=== PATIENT | female | born 1955 | race Caucasian/White ===

== ENCOUNTER 2019-12-18 19:46 | Inpatient (IN) ==
[2019-12-18] MEDS ORDERED: SODIUM CHLORIDE 0.9% 1000ML 1,000 ML IV SCH (20:15)
--- NOTE | 2019-12-18 20:30 | XRay Report ---
XR chest 1V portable CLINICAL HISTORY: weakness COMPARISON STUDY: Chest CT September 02, 2010. FINDINGS: Lung volumes are normal. There is no pneumothorax or pleural effusion. There is mild to mod erate cardiomegaly without evidence for pulmonary edema. There is minimal right basilar opacity. IMPRESSION: 1. Minimal right basilar opacity. Atelectasis is favored although a mild infectious process could alejandro ear similar. 2. Cardiomegaly without evidence for pulmonary edema. ACT 112: Negative or not required by law. Electronically signed by: Messi Cohen M.D. 12/18/2019 8:29 PM
--- NOTE | 2019-12-18 20:48 | CT Scan Report ---
CT OF THE HEAD WITHOUT CONTRAST CLINICAL HISTORY: Weakness. Fall. COMPARISON STUDY: No previous studies for comparison. CT DOSE: 614.27 mGy.cm TECHNIQUE: Helical axial images of the head were obtained without IV contrast. Automated exposure con trol was utilized for the study. A dose lowering technique was utilized adhering to the principles o f ALARA. FINDINGS: No acute intracranial hemorrhage, midline shift or mass effect is present. Ventricular syst em is unremarkable. A small to moderate size focus of encephalomalacia within the right frontal lobe with volume loss is chronic. There are no extra axial collections. There are no findings to suggest a cute dural sinus thrombosis or acute territorial infarct. There is no calvarial fracture. There is mi ld frontal sinus polypoid mucosal thickening. IMPRESSION: 1. No acute intracranial findings. 2. 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 3. No calvarial fracture. ACT 112: Negative or not required by law. Electronically signed by: Messi Cohen M.D. 12/18/2019 8:46 PM
[2019-12-18 20:55] LABS: Hematocrit (blood only) 33.8 % (37-47); Hemoglobin 11.3 g/dL (12.0-16.0); Mean Corpuscular Hemoglobin 27.9 pg (25-34); Mean Corpuscular Hgb Conc 33.4 g/dL (32-36); Mean Corpuscular Volume 83.5 fL (80-100); Mean Platelet Volume 8.1 fL (7.4-10.4); Platelet Count 209 K/uL (130-400); RDW Coefficient of Variation 13.8 % (11.5-14.5); RDW Standard Deviation 42.2 fL (36.4-46.3); Red Blood Count 4.05 M/uL (4.2-5.4); White Blood Count 17.16 K/uL (4.8-10.8)
[2019-12-18 21:05] LABS: INR 2.5 (0.9-1.1); Prothrombin Time 23.7 Seconds (9.0-12.0)
[2019-12-18 21:17] LABS: Alanine Aminotransferase 14 U/L (12-78); Albumin Level 2.9 gm/dl (3.4-5.0); Aspartate Aminotransferase 14 U/L (15-37); BUN Creatinine Ratio 11.6 (10-20); Blood Urea Nitrogen 7 mg/dl (7-18); Calcium 8.9 mg/dl (8.5-10.1); Carbon Dioxide 30 mmol/L (21-32); Chloride 89 mmol/L (98-107); Est GFR (African American) 109.3; Est GFR (Non-African American) 94.3; Glucose 113 mg/dl (70-99); Magnesium 1.6 mg/dl (1.8-2.4); Potassium 2.5 mmol/L (3.5-5.1); Sodium 127 mmol/L (136-145)
[2019-12-18 21:24] LABS: Albumin Globulin Ratio 0.6 (0.9-2); Alkaline Phosphatase 82 U/L (45-117); Bilirubin,Total 0.4 mg/dl (0.2-1); Creatine Kinase 41 U/L (26-192); Globulin 4.6 gm/dl (2.5-4.0); Total Protein 7.5 gm/dl (6.4-8.2); Troponin I < 0.015 ng/ml (0-0.045)
[2019-12-18 21:26] LABS: Basophils # (auto) 0.01 K/uL (0-0.2); Basophils % (auto) 0.1 %; Eosinophils # (auto) 0.01 K/uL (0-0.5); Eosinophils % (auto) 0.1 %; Immature Granulocytes # (auto) 0.04 K/uL (0.00-0.02); Immature Granulocytes % (auto) 0.2 %; Lymphocytes # (auto) 0.88 K/uL (1.2-3.4); Lymphocytes % (auto) 5.1 %; Monocytes # (auto) 0.98 K/uL (0.11-0.59); Monocytes % (auto) 5.7 %; Neutrophils # (auto) 15.24 K/uL (1.4-6.5); Neutrophils % (auto) 88.8 %
[2019-12-18] MEDS ORDERED: PIPERACILL/TAZOBAC CONSULT ACTIVE PRN ×2 (21:28→23:45)
[2019-12-18] MEDS ORDERED: POTASSIUM CHLORIDE 10 MEQ TABCR PO STA (21:28)
[2019-12-18] MEDS ORDERED: PIPERACILLIN/TAZOBACTAM 4.5 GM/120 ML BAG IV ONE (21:28)
[2019-12-18] MEDS ORDERED: ALBUTEROL 0.083% NEBU SOLN 3 ML VIAL NEB STA (21:29)
[2019-12-18] MEDS: POTASSIUM CHLORIDE / WTR 10 MEQ/100 ML PLCT IV SCH ×2 (22:06→23:05)
--- NOTE | 2019-12-18 22:45 | History & Physical Report ---
Date of Service December 18, 2019 Assessment & Plan (1) Pneumonia involving right lung: Admit tele May be atelectasis - will order CT chest to further categorize. Continue with Levaquin and Zosyn until diagnosis more clear. prn MIGUEL stroud (2) Vaginal cancer: Seen and followed in [place] Had abdominal pain on the day of admission I will check CT scan of the abd/pelvis. (3) Hypercoagulable state: Warfarin lifelong INR therapeutic at 2.5 Continue warfarin daily INR (4) H/O deep venous thrombosis: (5) Knee pain, left: X-ray L knee (6) Hypokalemia: replace and will check in am (7) Hypomagnesemia: replaced and will check in am. (8) Hyponatremia: I held HCTZ gentle NSS overnight recheck in the am. History of Present Illness 64 y/o female presented to the ED with generalized weakness, having fall onto knees while walking to the bathroom. Patient reported to me that she was recently released from [place] where she had a vaginal mass removed that was cancerous. Actually on the ride home, she had increased abdominal pain without vomiting or diarrhea. No F/C, cough, SOB, or chest pain. . Primary Care Provider: Rudy Connor Allergies Allergy/AdvReac Type Severity Reaction Status Date / Time adhesive tape Allergy Verified 09/13/19 08:04 Home Medications Home Medications Medication Instructions Recorded Confirmed Type aspirin 81 mg tablet,delayed 81 mg PO DAILY 04/12/19 12/18/19 History release folic acid 1 mg tablet 1 mg PO DAILY 04/12/19 12/18/19 History furosemide 40 mg tablet 40 mg PO DAILY 04/12/19 12/18/19 History levothyroxine 125 mcg capsule 125 mcg PO DAILY 04/12/19 12/18/19 History losartan 50 mg tablet 50 mg PO DAILY 04/12/19 12/18/19 History warfarin 5 mg tablet See Rx Instructions .ROUTE .COMPLEX 04/12/19 12/18/19 History amlodipine [Norvasc] 10 mg PO DAILY 12/18/19 12/18/19 History hydrochlorothiazide 25 mg PO DAILY 12/18/19 12/18/19 History multivitamin 1 tab PO DAILY 12/18/19 12/18/19 History potassium chloride 20 meq PO DAILY 12/18/19 12/18/19 History thiamine HCl (vitamin B1) [Vitamin 100 mg PO DAILY 12/18/19 12/18/19 History B-1] Past Med/Surg History Medical History (Updated 12/19/19 @ 04:25 by Frank Villanueva DO) H/O deep venous thrombosis Hypercoagulable state Hypothyroid (Chronic) Lupus (Chronic) Sciatica (Chronic) Spinal stenosis (Chronic) Vaginal cancer Surgical History History of intestinal surgery (Resolved) S/P tubal ligation (Resolved) Social History Preferred Language: Czech Communication Ability: Effective Visual Impairment: No Limitations Hearing Ability: Normal Payroll And Benefits Assistant Required: No Beliefs That Will Affect Care: None marital status: Current Living Situation: Spouse Feels Safe at Home: Yes Smoking Status: Current every day smoker Tobacco Type: cigarettes ; Age Quit Using Tobacco: 63 ; Cigarettes Per Day: 10 ; Tobacco Cessation Education Re quested by Patient: No Hx Alcohol Use: Yes Alcohol type: hard liquor Alcohol Intake Frequency: Holidays/Special Occasions Hx Substance Use: No Review of Systems Review of Systems: All systems reviewed & are unremarkable except as noted in HPI & below Physical Exam Physical Exam: General- adult female, NAD Head- atraumatic Eyes- PERRL, EOMI, anicteric ENT- oropharynx clear Neck- supple, no JVD, no adenopathy, no thyromegaCTA b/l no R/R/W.clear to auscultation and percussion Heart- regular rhythm; no murmur, no gallop, no rub appreciated Abdomen- normal bowel sounds, soft, nontender. Extremities- no pretibial edema, no calf tenderness; peripheral pulses intact. + ecchymosis over the patella Left. Neuro- alert, oriented x 3; PERRL, EOMI; wool washer feeder II-XII grossly intact, non-focal. Skin- warm & dry Results & Data Vital Signs (Past 12 Hours) Vital Signs Temp Pulse Pulse Resp BP BP Pulse Ox 12/18/19 22:39 82 18 111/60 97 12/18/19 22:21 79 18 91 12/18/19 20:35 98 12/18/19 19:59 36.8 C 73 18 114/65 89 L Laboratory Results Laboratory Results WBC 17.16 K/uL (4.8-10.8) H 12/18/19 20:43 RBC 4.05 M/uL (4.2-5.4) L 12/18/19 20:43 Hgb 11.3 g/dL (12.0-16.0) L 12/18/19 20:43 Hct 33.8 % (37-47) L 12/18/19: MCV 83.5 fL (80-100) 12/18/19 20:43 MCH 27.9 pg (25-34) 12/18/19: MCHC 33.4 g/dL (32-36) 12/18/19: RDW Std Deviation 42.2 fL (36.4-46.3) 12/18/19: RDW Coeff of Laura 13.8 % (11.5-14.5) 12/18/19: Plt Count 209 K/uL (130-400) 12/18/19: MPV 8.1 fL (7.4-10.4) 12/18/19:43 Immature Gran % (Auto) 0.2 % 12/18/19:43 Neut % (Auto) 88.8 % 12/18/19:43 Lymph % (Auto) 5.1 % 12/18/19 20:43 Gillespie % (Auto) 5.7 % 12/18/19:43 Eos % (Auto) 0.1 % 12/18/19:43 Baso % (Auto) 0.1 % 12/18/19:43 Immature Gran # (Auto) 0.04 K/uL (0.00-0.02) H 12/18/19 20:43 Neut # (Auto) 15.24 K/uL (1.4-6.5) H 12/18/19 20:43 Lymph # (Auto) 0.88 K/uL (1.2-3.4) L 12/18/19:43 Gillespie # (Auto) 0.98 K/uL (0.11-0.59) H 12/18/19:43 Eos # (Auto) 0.01 K/uL (0-0.5) 12/18/19 20:43 Baso # (Auto) 0.01 K/uL (0-0.2) 12/18/19 20:43 PT 23.7 Seconds (9.0-12.0) H 12/18/19 20:43 INR 2.5 (0.9-1.1) H 12/18/19 20:43 Sodium 127 mmol/L (136-145) L 12/18/19 20:43 Potassium 2.5 mmol/L (3.5-5.1) L* 12/18/19 20:43 Chloride 89 mmol/L (98-107) L 12/18/19 20:43 Carbon Dioxide 30 mmol/L (21-32) 12/18/19 20:43 Anion Gap 8.0 (3-11) 12/18/19 20:43 BUN 7 mg/dl (7-18) 12/18/19 20:43 Creatinine 0.64 mg/dl (0.6-1.2) 12/18/19 20:43 Est Cr Clr Drug Dosing Not Reportable 12/18/19 20:43 Est GFR ( Amer) 109.3 12/18/19 20:43 Est GFR (Non-Af Amer) 94.3 12/18/19 20:43 BUN/Creatinine Ratio 11.6 (10-20) 12/18/19 20:43 Glucose 113 mg/dl (70-99) H 12/18/19 20:43 Calcium 8.9 mg/dl (8.5-10.1) 12/18/19 20:43 Magnesium 1.6 mg/dl (1.8-2.4) L 12/18/19 20:43 Total Bilirubin 0.4 mg/dl (0.2-1) 12/18/19 20:43 AST 14 U/L (15-37) L 12/18/19 20:43 ALT 14 U/L (12-78) 12/18/19 20:43 Alkaline Phosphatase 82 U/L (45-117) 12/18/19 20:43 Total Creatine Kinase 41 U/L (26-192) 12/18/19 20:43 Troponin I < 0.015 ng/ml (0-0.045) 12/18/19 20:43 Total Protein 7.5 gm/dl (6.4-8.2) 12/18/19 20:43 Albumin 2.9 gm/dl (3.4-5.0) L 12/18/19 20:43 Globulin 4.6 gm/dl (2.5-4.0) H 12/18/19 20:43 Albumin/Globulin Ratio 0.6 (0.9-2) L 12/18/19 20:43 TSH 2.780 uIu/ml (0.300-4.500) 12/18/19 20:43 Diagnostic Findings [facility], [place] [id number] XRay Report Patient: Fay CHAUDHARY Date: 12/18/19 MR#: [id number]: [id number] Acct ID:[id number]: Date: [address] [place] [address] Zip: [place] [address] Age: 64Location: ED Sex: F Room/Bed: Att Phy:Diagnosis: WEAKNESS, POSSIBLE SEIZURE, PEROID OF UNRESP. Estrellita Phy: Rudy Connor M.D.Service Date: 12/18/19 Fam Phy:Interpreting Phy: Messi Cohen MD Admit Phy: Ordering Phy: Willard Barron MD cc: ~ XR chest 1V portable CLINICAL HISTORY: weakness COMPARISON STUDY: Chest CT September 02, 2010. FINDINGS: Lung volumes are normal. There is no pneumothorax or pleural effusion. There is mild to moderate cardiomegaly without evidence for pulmonary edema. There is minimal right basilar opacity. IMPRESSION: 1. Minimal right basilar opacity. Atelectasis is favored although a mild infectious process could appear similar. 2. Cardiomegaly without evidence for pulmonary edema. ACT 112: Negative or not required by law. [facility], [place] [phone] CT Scan Report Patient: Fay CHAUDHARY Date: 12/18/19 MR#: [id number]: [id number] Acct ID:[id number]: Date: [address] [place] [address] Zip: [place] [address] Age: 64Location: ED Sex: F Room/Bed: Att Phy:Diagnosis: WEAKNESS, POSSIBLE SEIZURE, PEROID OF UNRESP. Estrellita Phy: Rudy Connor M.D.Service Date: 12/18/19 [facility] Phy:Interpreting Phy: Messi Cohen MD Admit Phy: Ordering Phy: Willard Barron MD cc: ~ CT OF THE HEAD WITHOUT CONTRAST CLINICAL HISTORY: Weakness. Fall. COMPARISON STUDY: No previous studies for comparison. CT DOSE: 614.27 mGy.cm TECHNIQUE: Helical axial images of the head were obtained without IV contrast. Automated exposure control was utilized for the study. A dose lowering technique was utilized adhering to the principles of ALARA. FINDINGS: No acute intracranial hemorrhage, midline shift or mass effect is present. Ventricular system is unremarkable. A small to moderate size focus of encephalomalacia within the right frontal lobe with volume loss is chronic. There are no extra axial collections. There are no findings to suggest acute dural sinus thrombosis or acute territorial infarct. There is no calvarial fracture. There is mild frontal sinus polypoid mucosal thickening. IMPRESSION: 1. No acute intracranial findings. 2. 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 3. No calvarial fracture. ACT 112: Negative or not required by law. Electronically signed by: Messi Cohen M.D. 12/18/2019 8:46 PM Dictated: 12/18/192043 Transcribed: 12/18/192043 Code Status & VTE Plan VTE Prophylaxis Plan VTE Prophylaxis will be ordered: Yes PG Care Time/CCT Total # of Minutes Spent Total Time Spent: 65 Total Time Spent with Patient: Total time spent is greater than 50% in coordination of care (as documented) at patient's floor/unit and/or counseling patient: Coding Level of Care Code 49265 Initial Inpt Care Lvl 3 Diagnoses Pneumonia involving right lung J18.9 Vaginal cancer C52 Hypercoagulable state D68.59 H/O deep venous thrombosis Z86.718 Knee pain, left M25.562 Hypokalemia E87.6 Hypomagnesemia E83.42 Hyponatremia E87.1
[2019-12-18] MEDS ORDERED: MoRPHine SULFATE 2 MG/ML CARP IV PRN (23:45)
[2019-12-18] MEDS ORDERED: ALBUT/IPRATROP 3MG/0.5MG NEB 3 ML VIAL NEB PRN (23:45)
[2019-12-18] MEDS ORDERED: PATIENT'S HEIGHT AND/OR WEIGHT NEEDED SCH (23:45)
[2019-12-18] MEDS ORDERED: ACETAMINOPHEN 325 MG TAB PO PRN (23:45)
[2019-12-18] MEDS ORDERED: ONDANSETRON INJ 2 MG/ML 2 ML VIAL IV PRN (23:45)
[2019-12-18] MEDS ORDERED: KETOROLAC TROMETHAMINE 15 MG/ML VIAL IV PRN (23:45)
[2019-12-18] MEDS ORDERED: MAGNESIUM SULFATE / D5W 1 GM/100 ML BAG IV ONE (23:45)
[2019-12-19] MEDS ORDERED: INFLUENZA VIRUS QUAD VACCINE 0.5 ML SYR IM ONE (00:08)
[2019-12-19] MEDS ORDERED: INFLUENZA ADMINISTRATION CHARGE ONE (00:08)
[2019-12-19] MEDS: LEVOFLOXACIN/D5W 750 MG/150 ML BAG IV STA ×2 (00:09→01:04)
[2019-12-19] MEDS: NSS + 20MEQ KCL 20 MEQ/1,000 ML BAG IV SCH ×3 (01:02→20:16)
--- NOTE | 2019-12-19 02:03 | Emergency Department Note ---
Entered by Armida Bush acting as a scribe for History of Present Illness General Chief complaint: Weakness Stated complaint: WEAKNESS, POSSIBLE SEIZURE, PEROID OF UNRESP. Time Seen by Provider: 12/18/19 19:57 Source: patient and family Mode of arrival: EMS Limitations: no limitations History of Present Illness Onset (ago): hour(s) 1 Location: head Radiation: non-radiation Pain Consistency: + now resolved Relieved By: + none Exacerbated By: + none Associated symptoms: + seizure and + other (+LOC); no fever/chills Treatments prior to arrival: none The patient is a 64 year old female who presents to the Emergency Room with complaints of weakness. She was brought to the ED via ALS. She states she was walking to the bathroom and her legs gave out and fell to her knees. She denies hitting her head. Her family told EMS that she had "a seizure in her left leg" and stated she was shaking and had a short period of unresponsiveness. The patient reports she feels weak and tired. She is currently receiving treatment for metastatic melanoma. She denies any recent fevers or illnesses. Home Medications Home Medications Medication Instructions Recorded Confirmed Type aspirin 81 mg tablet,delayed 81 mg PO DAILY 04/12/19 12/18/19 History release folic acid 1 mg tablet 1 mg PO DAILY 04/12/19 12/18/19 History furosemide 40 mg tablet 40 mg PO DAILY 04/12/19 12/18/19 History levothyroxine 125 mcg capsule 125 mcg PO DAILY 04/12/19 12/18/19 History losartan 50 mg tablet 50 mg PO DAILY 04/12/19 12/18/19 History warfarin 5 mg tablet See Rx Instructions .ROUTE .COMPLEX 04/12/19 12/18/19 His tory amlodipine [Norvasc] 10 mg PO DAILY 12/18/19 12/18/19 History hydrochlorothiazide 25 mg PO DAILY 12/18/19 12/18/19 History multivitamin 1 tab PO DAILY 12/18/19 12/18/19 History potassium chloride 20 meq PO DAILY 12/18/19 12/18/19 History thiamine HCl (vitamin B1) [Vitamin 100 mg PO DAILY 12/18/19 12/18/19 History B-1] Allergies Allergy/AdvReac Type Severity Reaction Status Date / Time adhesive tape Allergy Verified 09/13/19 08:04 Past Med/Surg History Medical History H/O deep venous thrombosis Hypercoagulable state Hypothyroid (Chronic) Lupus (Chronic) Sciatica (Chronic) Spinal stenosis (Chronic) Vaginal cancer Surgical History History of intestinal surgery (Resolved) S/P tubal ligation (Resolved) Social History Preferred Language: Greenlandic Communication Ability: Effective Visual Impairment: No Limitations Hearing Ability: Normal Emt B Required: No Beliefs That Will Affect Care: None marital status: Current Living Situation: Spouse Feels Safe at Home: Yes Smoking Status: Current every day smoker Tobacco Type: cigarettes ; Age Quit Using Tobacco: 63 ; Cigarettes Per Day: 10 ; Tobacco Cessation Education Requested by Patient: No Hx Alcohol Use: Yes Alcohol type: hard liquor Alcohol Intake Frequency: Holidays/Special Occasions Hx Substance Use: No Review of Systems See HPI for pertinent positives & negatives. and A total of 10 systems reviewed and were otherwise negative Physical Exam Vital Signs Vital Signs - 24 hr 12/18/19 19:59 12/18/19 20:35 12/18/19 22:21 Temperature 36.8 C Temperature Source Oral Pulse Rate 73 Pulse Rate [Right Finger] 79 Respiratory Rate 18 18 Respiratory Effort / Characteristics Non-Labored Spontaneous Non-Labored Spontaneous Respiratory Depth Normal Respiratory Pattern Regular Blood Pressure 114/65 Blood Pressure Mean 81 Blood Pressure Position Semi-fowlers Pulse Oximetry 89 L 98 91 Oxygen Delivery Method Room Air Nasal Cannula Room Air Oxygen Flow Rate 2 Sepsis Recent Fever Within 48 Hours No Sepsis New/Unexplained Change in Mental Status No Sepsis Action Taken by Nursing No Action Required GENERAL: Patients eyes are closed, responds with one word answers. HENT: Normocephalic, atraumatic. Oropharynx unremarkable. EYES: Normal conjunctiva. Sclera non-icteric. NECK: Supple. No nuchal rigidity. FROM. No JVD. RESPIRATORY: Clear to auscultation. CARDIAC: Regular rate, normal rhythm. Extremities warm and well perfused. Pulses equal. ABDOMEN: Soft, non-distended. No tenderness to palpation. No rebound or guarding. No masses. RECTAL: Deferred. MUSCULOSKELETAL: Chest examination reveals no tenderness. The back is symmetrical on inspection without obvious abnormality. There is no CVA tenderness to palpation. No joint edema. LOWER EXTREMITIES: Calves are equal size bilaterally and non-tender. No edema. No discoloration. NEURO: Normal sensorium. No sensory or motor deficits noted. SKIN: No rash or jaundice noted. Course Course 1958: The patient was evaluated in room A11. A complete history and physical we re performed. 2114: Nursing informed me the patients Potassium is 2.5. 2134: I reevaluated the patient. I discussed her results and my recommendation she remain in the hospital for further evaluation and management and she is agreeable with the plan. 2149: I discussed the patients case with Dr. Villanueva, [facility] Hospitalist. The patient will be further evaluated. Administered Medications Amlodipine Besylate (Norvasc) 10 mg PO DAILY JAVIER Stop: 01/18/20 08:59 Last Admin: 12/21/19 08:15 Dose: 10 mg Documented by: [id number] Admin: 12/20/19 08:32 Dose: 10 mg Documented by: [id number] Admin: 12/19/19 10:14 Dose: 10 mg Documented by: [id number] Aspirin (Ecotrin Ectab) 81 mg PO DAILY JAVIER Stop: 01/18/20 08:59 Last Admin: 12/21/19 08:16 Dose: 81 mg Documented by: [id number] Admin: 12/20/19 08:31 Dose: 81 mg Documented by: [id number] Admin: 12/19/19 10:15 Dose: 81 mg Documented by: [id number] Folic Acid (Folvite) 1 mg PO DAILY JAVIER Stop: 01/18/20 08:59 Last Admin: 12/21/19 08:16 Dose: 1 mg Documented by: [id number] Admin: 12/20/19 08:32 Dose: 1 mg Documented by: [id number] Admin: 12/19/19 10:14 Dose: 1 mg Documented by: [id number] Furosemide (Lasix) 40 mg PO DAILY JAVIER Stop: 01/18/20 08:59 Last Admin: 12/21/19 08:16 Dose: 40 mg Documented by: [id number] Admin: 12/20/19 08:31 Dose: 40 mg Documented by: [id number] Admin: 12/19/19 10:14 Dose: 40 mg Documented by: [id number] Levothyroxine Sodium (Synthroid) 125 mcg PO DAILYBB JAVIER Stop: 01/18/20 06:29 Last Admin: 12/21/19 05:59 Dose: 125 mcg Documented by: [id number] Admin: 12/20/19 05:54 Dose: 125 mcg Documented by: [id number] Admin: 12/19/19 05:55 Dose: 125 mcg Documented by: [id number] Losartan Potassium (Cozaar) 50 mg PO DAILY JAVIER Stop: 01/18/20 08:59 Last Admin: 12/21/19 08:16 Dose: 50 mg Documented by: [id number] Admin: 12/20/19 08:32 Dose: 50 mg Documented by: [id number] Admin: 12/19/19 10:13 Dose: 50 mg Documented by: [id number] Multivitamins (Multivitamin Tab) 1 tab PO DAILY JAVIER Stop: 01/18/20 08:59 Last Admin: 12/21/19 08:17 Dose: 1 tab Documented by: [id number] Admin: 12/20/19 08:30 Dose: 1 tab Documented by: [id number] Admin: 12/19/19 10:13 Dose: 1 tab Documented by: [id number] Pantoprazole Sodium (Protonix) 40 mg PO QAM JAVIER Stop: 01/18/20 08:59 Last Admin: 12/21/19 08:17 Dose: 40 mg Documented by: [id number] Admin: 12/20/19 08:31 Dose: 40 mg Documented by: [id number] Admin: 12/19/19 10:14 Dose: 40 mg Documented by: [id number] Potassium Chloride (Klor-Con M20) 20 meq PO DAILY JAVIER Stop: 01/18/20 08:59 Last Admin: 12/21/19 08:17 Dose: 20 meq Documented by: [id number] Admin: 12/20/19 08:30 Dose: 20 meq Documented by: [id number] Admin: 12/19/19 10:13 Dose: 20 meq Documented by: [id number] Raspberry (Raspberry) 5 ml PO Q6 JAVIER Stop: 01/03/20 17:59 Last Admin: 12/21/19 18:18 Dose: 5 ml Documented by: [id number] Admin: 12/21/19 13:10 Dose: 5 ml Documented by: [id number] Admin: 12/21/19 05:59 Dose: 5 ml Documented by: [id number] Admin: 02/15/20 00:23 Dose: 5 ml Documented by: [id number] Admin: 12/20/19 18:59 Dose: 5 ml Documented by: [id number] Saccharomyces Boulardii (Florastor) 250 mg PO DAILY JAVIER Stop: 01/19/20 10:59 Last Admin: 12/21/19 08:16 Dose: 250 mg Documented by: [id number] Admin: 12/20/19 12:14 Dose: 250 mg Documented by: [id number] Thiamine HCl (Vitamin B-1) 100 mg PO DAILY JAVIER Stop: 01/18/20 08:59 Last Admin: 12/21/19 08:16 Dose: 100 mg Documented by: [id number] Admin: 12/20/19 08:32 Dose: 100 mg Documented by: [id number] Admin: 12/19/19 10:15 Dose: 100 mg Documented by: [id number] Vancomycin HCl (Vancomycin Hcl) 125 mg PO Q6 JAVIER Stop: 12/30/19 17:59 Last Admin: 12/21/19 18:18 Dose: 125 mg Documented by: [id number] Admin: 12/21/19 13:10 Dose: 125 mg Documented by: [id number] Admin: 12/21/19 05:59 Dose: 125 mg Documented by: [id number] Admin: 12/21/19 00:23 Dose: 125 mg Documented by: [id number] Admin: 12/20/19 18:59 Dose: 125 mg Documented by: [id number] Warfarin Sodium (Coumadin) 5 mg PO DAILY@1600 JAVIER Stop: 01/19/20 15:59 Last Admin: 12/21/19 16:48 Dose: 5 mg Documented by: [id number] Admin: 12/20/19 16:07 Dose: 5 mg Documented by: [id number] Discontinued Medications Albuterol (Ventolin 0.083% 2.5mg/3ml) 2.5 mg NEB NOW STA Stop: 12/18/19 21:30 Last Admin: 12/18/19 22:20 Dose: 2.5 mg Documented by: [id number] Sodium Chloride (Nss 1000ml) 1,000 mls @ 999 mls/hr IV .Q1H1M JAVIER Stop: 12/18/19 21:15 Last Infusion: 12/18/19 23:05 Dose: 0 mls/hr Documented by: [id number] Admin: 12/18/19 20:54 Dose: 999 mls/hr Documented by: [id number] Potassium Chloride (K Luigi / Wtr) 10 meq in 100 mls @ 100 mls/hr IV Q1H JAVIER Stop: 12/18/19 23:29 Last Infusion: 12/19/19 01:33 Dose: 0 mls/hr Documented by: [id number] Admin: 12/18/19 23:05 Dose: 100 mls/hr Documented by: [id number] Infusion: 12/18/19 23:05 Dose: 100 mls/hr Documented by: [id number] Admin: 12/18/19 22:06 Dose: 100 mls/hr Documented by: [id number] Piperacillin Sod/Tazobactam Sod (Zosyn) 4.5 gm in 120 mls @ 240 mls/hr IV NOW ONE Stop: 12/18/19 21:57 Last Infusion: 12/18/19 23:21 Dose: 0 mls/hr Documented by: [id number] Admin: 12/18/19 22:33 Dose: 240 mls/hr Documented by: [id number] Levofloxacin/Dextrose (Levaquin/D5w) 750 mg in 150 mls @ 100 mls/hr IV NOW STA Stop: 12/18/19 22:57 Last Infusion: 12/19/19 02:34 Dose: 0 mls/hr Documented by: [id number] Admin: 12/19/19 01:04 Dose: 100 mls/hr Documented by: [id number] Potassium Chloride/Sodium Chloride (Normal Saline W/20 Meq Kcl) 20 meq in 1,000 mls @ 100 mls/hr IV .Q10H JAVIER Stop: 01/17/20 23:44 Last Admin: 12/21/19 14:43 Dose: Not Given Documented by: [id number] Infusion: 12/21/19 14:43 Dose: 0 mls/hr Documented by: [id number] Admin: 12/21/19 05:59 Dose: 100 mls/hr Documented by: [id number] Infusion: 12/21/19 02:06 Dose: 100 mls/hr Documented by: [id number] Admin: 12/20/19 16:06 Dose: 100 mls/hr Documented by: [id number] Infusion: 12/20/19 15:34 Dose: 100 mls/hr Documented by: [id number] Admin: 12/20/19 05:34 Dose: 100 mls/hr Documented by: [id number] Infusion: 12/20/19 05:34 Dose: 100 mls/hr Documented by: [id number] Admin: 12/19/19 20:16 Dose: 100 mls/hr Documented by: [id number] Infusion: 12/19/19 20:15 Dose: 100 mls/hr Documented by: [id number] Admin: 12/19/19 10:15 Dose: 100 mls/hr Documented by: [id number] Infusion: 12/19/19 10:15 Dose: 100 mls/hr Documented by: [id number] Admin: 12/19/19 01:02 Dose: 100 mls/hr Documented by: [id number] Piperacillin Sod/Tazobactam (Sod 3.375 gm/ Dextrose) 115 mls @ 28.75 mls/hr IV Q8H [facility]; Protocol Stop: 12/26/19 03:59 Last Infusion: 12/19/19 15:35 Dose: 0 mls/hr Documented by: [id number] Admin: 12/19/19 12:03 Dose: 28.8 mls/hr Documented by: [id number] Infusion: 12/19/19 08:19 Dose: 0 mls/hr Documented by: [id number] Admin: 12/19/19 04:23 Dose: 28.8 mls/hr Documented by: [id number] Levofloxacin/Dextrose (Levaquin/D5w) 750 mg in 150 mls @ 100 mls/hr IV Q24H [facility] Stop: 12/26/19 19:59 Last Infusion: 12/20/19 21:43 Dose: 0 mls/hr Documented by: [id number] Admin: 12/20/19 20:04 Dose: 100 mls/hr Documented by: [id number] Infusion: 12/19/19 22:35 Dose: 0 mls/hr Documented by: [id number] Admin: 12/19/19 20:17 Dose: 100 mls/hr Documented by: [id number] Magnesium Sulfate/Dextrose (Magnesium Sulfate / D5w) 1 gm in 100 mls @ 100 mls/hr IV ONE ONE Stop: 12/19/19 00:44 Last Infusion: 12/19/19 02:02 Dose: 0 mls/hr Documented by: [id number] Admin: 12/19/19 01:02 Dose: 100 mls/hr Documented by: [id number] Metronidazole (Flagyl) 500 mg in 100 mls @ 100 mls/hr IV Q8H [facility]; Protocol Stop: 12/30/19 08:59 Last Infusion: 12/21/19 09:39 Dose: 0 mls/hr Documented by: [id number] Admin: 12/21/19 08:39 Dose: 100 mls/hr Documented by: [id number] Infusion: 12/21/19 01:30 Dose: 0 mls/hr Documented by: [id number] Admin: 12/21/19 00:23 Dose: 100 mls/hr Documented by: [id number] Infusion: 12/20/19 17:06 Dose: 0 mls/hr Documented by: [id number] Admin: 12/20/19 16:05 Dose: 100 mls/hr Documented by: [id number] Infusion: 12/20/19 09:52 Dose: 0 mls/hr Documented by: [id number] Admin: 12/20/19 08:42 Dose: 100 mls/hr Documented by: [id number] Influenza Virus Vaccine Quadrival (Flucelvax Quad Vaccine) 0.5 ml IM .ONCE ONE Stop: 12/19/19 00:09 Last Admin: 12/19/19 10:17 Dose: Not Given Documented by: [id number] Potassium Chloride (Klor-Con M10) 40 meq PO NOW STA Stop: 12/18/19 21:29 Last Admin: 12/18/19 22:06 Dose: 40 meq Documented by: [id number] Warfarin Sodium (Coumadin) 6 mg PO SuMoTuThFrSa@1600 JAVIER Stop: 01/18/20 15:59 Last Admin: 12/19/19 15:43 Dose: 6 mg Documented by: [id number] Medical Decision Making Differential Diagnosis Differential Diagnosis includes but is not limited to dehydration, stroke, anemia, hypoglycemia, hyponatremia, hypernatremia, urinary tract infection, pneumonia, bronchitis, sepsis, gastroenteritis, additional abdominal pathology, metabolic abnormalities and infections. Medical Records Attestation: I reviewed the patient's medical records. Home Medications Current Medication List: was personally reviewed by me Laboratory Data Attestation: I reviewed the patient's lab results. Result diagrams: 12/21/19 07:19 12/21/19 07:19 Lab Results 12/18/19 12/18/19 12/18/19 Range/Units 20:43 20:43 20:43 WBC 17.16 H (4.8-10.8) K/uL RBC 4.05 L (4.2-5.4) M/uL Hgb 11.3 L (12.0-16.0) g/dL Hct 33.8 L (37-47) % MCV 83.5 (80-100) fL MCH 27.9 (25-34) pg MCHC 33.4 (32-36) g/dL RDW Std Deviation 42.2 (36.4-46.3) fL RDW Coeff of Laura 13.8 (11.5-14.5) % Plt Count 209 (130-400) K/uL MPV 8.1 (7.4-10.4) fL Immature Gran % (Auto) 0.2 % Neut % (Auto) 88.8 % Lymph % (Auto) 5.1 % Dyer % (Auto) 5.7 % Eos % (Auto) 0.1 % Baso % (Auto) 0.1 % Immature Gran # (Auto) 0.04 H (0.00-0.02) K/uL Neut # (Auto) 15.24 H (1.4-6.5) K/uL Lymph # (Auto) 0.88 L (1.2-3.4) K/uL Dyer # (Auto) 0.98 H (0.11-0.59) K/uL Eos # (Auto) 0.01 (0-0.5) K/uL Baso # (Auto) 0.01 (0-0.2) K/uL PT 23.7 H (9.0-12.0) Seconds INR 2.5 H (0.9-1.1) Sodium 127 L (136-145) mmol/L Potassium 2.5 L* (3.5-5.1) mmol/L Chloride 89 L (98-107) mmol/L Carbon Dioxide 30 (21-32) mmol/L Anion Gap 8.0 (3-11) BUN 7 (7-18) mg/dl Creatinine 0.64 (0.6-1.2) mg/dl Est Cr Clr Drug Dosing Not Reportable Est GFR ( Amer) 109.3 Est GFR (Non-Af Amer) 94.3 BUN/Creatinine Ratio 11.6 (10-20) Glucose 113 H (70-99) mg/dl Calcium 8.9 (8.5-10.1) mg/dl Magnesium 1.6 L (1.8-2.4) mg/dl Total Bilirubin 0.4 (0.2-1) mg/dl AST 14 L (15-37) U/L ALT 14 (12-78) U/L Alkaline Phosphatase 82 (45-117) U/L Total Creatine Kinase 41 (26-192) U/L Troponin I < 0.015 (0-0.045) ng/ml Total Protein 7.5 (6.4-8.2) gm/dl Albumin 2.9 L (3.4-5.0) gm/dl Globulin 4.6 H (2.5-4.0) gm/dl Albumin/Globulin Ratio 0.6 L (0.9-2) TSH 2.780 (0.300-4.500) uIu/ml Imaging Data Radiologist's Impression: Radiology results as stated below per my review and the radiologist's interpretation: XR chest 1V portable CLINICAL HISTORY: weakness COMPARISON STUDY: Chest CT September 02, 2010. FINDINGS: Lung volumes are normal. There is no pneumothorax or pleural effusion. There is mild to moderate cardiomegaly without evidence for pulmonary edema. There is minimal right basilar opacity. IMPRESSION: 1. Minimal right basilar opacity. Atelectasis is favored although a mild infectious process could appear similar. 2. Cardiomegaly without evidence for pulmonary edema. ACT 112: Negative or not required by law. Electronically signed by: Messi Cohen M.D. 12/18/2019 8:[address] OF THE HEAD WITHOUT CONTRAST CLINICAL HISTORY: Weakness. Fall. COMPARISON STUDY: No previous studies for comparison. CT DOSE: 614.27 mGy.cm TECHNIQUE: Helical axial images of the head were obtained without IV contrast. Automated exposure control was utilized for the study. A dose lowering technique was utilized adhering to the principles of ALARA. FINDINGS: No acute intracranial hemorrhage, midline shift or mass effect is p resent. Ventricular system is unremarkable. A small to moderate size focus of encephalomalacia within the right frontal lobe with volume loss is chronic. There are no extra axial collections. There are no findings to suggest acute dural sinus thrombosis or acute territorial infarct. There is no calvarial fracture. There is mild frontal sinus polypoid mucosal thickening. IMPRESSION: 1. No acute intracranial findings. 2. 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 3. No calvarial fracture. ACT 112: Negative or not required by law. Electronically signed by: Messi Cohen M.D. 12/18/2019 8:46 PM ECG Data Attestation: I personally reviewed and interpreted this ECG as follows: Indication: + weakness Rate (beats per minute): 74 Rhythm: + normal sinus ECG Intervals/blocks: + Normal QT-c (492) ECG ST segments: no ST depression and no ST elevation Blood Pressure Blood Pressure Findings: Normal blood pressure Blood Pressure Disposition: did not require urgent referral MDM Narrative This is a 64-year-old female who presents emergency department complaining of generalized weakness. Patient's CAT scan is concerning for an old infarct. I did discuss the case with the hospitalist service who did agree to admit the patient. Patient was in agreement with the treatment plan. Impression & Plan Weakness, Pneumonia involving right lung Discharge Plan Visit Data *Final* Discharge Date/Time: 12/18/19 23:14 Chief Complaint: Weakness Stated Complaint: WEAKNESS, POSSIBLE SEIZURE, PEROID OF UNRESP. ED Provider: Willard Barron Discharge Problem: Weakness, Pneumonia involving right lung Patient Disposition: Admitted As Inpatient Discharge Instructions Interventions: ED Discharge Assessment Last Done: 12/18/19 23:14 Discharge Problem: Pneumonia involving right lung Qualifiers: Pneumonia type: due to unspecified organism Lung location: unspecified part of lung Qualified Code(s): J18.9 - Pneumonia, unspecified organism The scribe's documentation has been prepared under my direction and personally reviewed by me in its entirety. I confirm that the note above accurately reflects all work, treatment, procedures, and medical decision making performed by me.
[2019-12-19] MEDS: PIPERACILLIN/TAZOBACTAM 3.375 GM in DEXTROSE 5% 100 ML IV SCH ×2 (04:23→12:03)
[2019-12-19] MEDS: LEVOTHYROXINE SODIUM 125 MCG TABLET PO SCH (05:55)
[2019-12-19 07:48] LABS: Hematocrit (blood only) 31.8 % (37-47); Hemoglobin 10.4 g/dL (12.0-16.0); Mean Corpuscular Hemoglobin 27.4 pg (25-34); Mean Corpuscular Hgb Conc 32.7 g/dL (32-36); Mean Corpuscular Volume 83.9 fL (80-100); Mean Platelet Volume 8.3 fL (7.4-10.4); Platelet Count 215 K/uL (130-400); RDW Coefficient of Variation 13.9 % (11.5-14.5); RDW Standard Deviation 41.7 fL (36.4-46.3); Red Blood Count 3.79 M/uL (4.2-5.4); White Blood Count 15.28 K/uL (4.8-10.8)
[2019-12-19 07:58] LABS: INR 2.6 (0.9-1.1); Prothrombin Time 25.3 Seconds (9.0-12.0)
[2019-12-19 08:22] LABS: BUN Creatinine Ratio 13.3 (10-20); Calcium 8.6 mg/dl (8.5-10.1); Creatinine Clr Calc Pharmacy 125.3 ml/min; Est GFR (African American) 119.3; Magnesium 1.9 mg/dl (1.8-2.4); Potassium 3.1 mmol/L (3.5-5.1)
--- NOTE | 2019-12-19 09:28 | CT Scan Report ---
CT SCAN OF THE CHEST WITHOUT IV CONTRAST CLINICAL HISTORY: Pneumonia. COMPARISON STUDY: Chest x-ray dated 12/18/2019. Chest CT dated 09/02/2010. TECHNIQUE: CT scan of the thorax was performed from the thoracic inlet to the upper abdomen. Images are reviewed in the axial, sagittal, and coronal planes. IV contrast was not administered for this ex amination as per the referring clinician. A dose lowering technique was utilized [facility] DOSE: 324.29 mGycm FINDINGS: Thyroid: Atrophic. Thoracic aorta: There is atherosclerotic calcification of the thoracic aorta. There is mild aneurysma l dilatation of the ascending thoracic aorta. This measures up to 4.0 cm in diameter. The remainder o f the thoracic aorta is normal in caliber and the arch demonstrates standard 3-vessel anatomy. Heart: The heart is mildly enlarged and without pericardial effusion. The coronary arteries are dense ly calcified. The pulmonary trunk is dilated measuring 3.4 cm in diameter. This suggests pulmonary ar bora hypertension. Lungs and pleural spaces: Emphysematous change is noted. The trachea and central airways are clear. A irspace opacities are present at the lung bases, right greater than left. This likely represents scar ring/atelectasis. There is trace right pleural effusion. A 12 mm nodular density is seen in the subpl eural right lower lobe on image #172 and has significantly increased in size from 2010. An 8 mm pleur al-based nodule in the right lower lobe on image #165 and a 7 mm pleural-based nodule in the right mi ddle lobe on image #200 have increased in size from 2010. Numerous (at least 6) additional subcentime ter nodules are unchanged to only slightly increased from previous. A calcified granuloma is noted at the left lung base. Mediastinum: There are prominent mediastinal lymph nodes. An AP window node measures 11 mm in short a xis. Vanita: Not well assessed without IV contrast. Axillae: There is no axillary lymphadenopathy. Upper abdomen: There is a small hiatal hernia. Partially visualized upper abdominal viscera is otherw ise grossly unremarkable. Skeletal structures: The skeletal structures are heterogeneously osteopenic. Degenerative change is n oted in the shoulders and thoracic spine. No lytic or blastic bony lesions are seen. IMPRESSION: 1. Cardiomegaly and emphysema. 2. Airspace opacities are present at both lung bases, right greater than left. This could represent s carring/atelectasis and/or a superimposed infectious/inflammatory pneumonitis. Clinical correlation w ill be required. 3. Trace right pleural effusion. 4. A 12 mm pleural-based nodule in the right lower lobe has significantly increased in size from 2009 . This is pathologically indeterminant and follow-up is indicated. See below. 5. Numerous (less than 10) additional subcentimeter pulmonary nodules measuring up to 8mm are unchang ed to minimally increased in size dating back to 2009. These are of low suspicion and can also be chelsey ssessed at follow-up. 6. Prominent mediastinal lymph nodes are similar to previous and likely related to chronic lung disea se. 7. There is mild aneurysmal dilatation of the ascending thoracic aorta which measures up to 4 cm in d iameter. 8. Additional findings as above. Please refer to below summary of Fleischner criteria recommendations for follow-up of incidental CT n odules (Silvia Patel, Guidelines for management of small pulmonary nodules detected on CT scans: A sta tement from the Fleischner Society, Radiology 237: [phone].) SOLID NODULES Solitary nodule size: <6 mm * low risk patients: no follow-up needed * high risk patients: optional CT at 12 months Solitary nodule size: 6-8 mm * low risk patients: follow-up at 6-12 months, then consider further follow-up at 18-24 months * high risk patients: initial follow-up CT at 6-12 months and then at 18-24 months if no change Solitary nodule size: >8 mm * either low or high risk patients - consider follow-up CT at 3 months, and/or CT-PET, and/or biopsy Multiple nodules size: <6 mm * low risk patients: no routine follow-up * high risk patients: optional CT at 12 months Multiple nodules size: 6-8 mm * low risk patients: follow-up at 3-6 months, then consider further follow-up at 18-24 months * high risk patients: follow-up at 3-6 months, then at 18-24 months if no change Multiple nodules size: >8 mm * low risk patients: follow-up at 3-6 months, then consider further follow-up at 18-24 months * high risk patients: follow-up at 3-6 months, then at 18-24 months if no change Note: newly detected indeterminate nodule in persons 35 years of age or older. * low risk patients: minimal or absent history of smoking and/or other known risk factors * high risk patients: history of smoking or of other known risk factors (e.g. first degree relative with lung cancer, or exposure to asbestos, radon, uranium) * if a nodule up to 8 mm is partly solid or is ground glass further follow-up is required after 24 m onths to exclude possible slow growing adenocarcinoma ([place]) SUBSOLID NODULES Solitary pure ground-glass nodule * nodule size <6 mm - no CT follow-up required * nodule size >=6 mm - follow-up CT at 6-12 months, then every 2 years until 5 years Solitary part-solid nodule * nodule size <6 mm - no CT follow-up required * nodule size >=6 mm - follow-up CT at 3-6 months. If unchanged, and solid component remains <6 mm, then annual follow-up for 5 years Multiple subsolid nodules * nodule size <6 mm - follow-up CT at 3-6 months, consider further follow-up at 2 and 4 years if sta ble * nodule size >=6 mm - follow-up CT at 3-6 months, subsequent management based on the most suspiciou s nodule(s) ACT 112: Negative or not required by law. Electronically signed by: Real Dennis M.D. 12/19/2019 9:27 AM
--- NOTE | 2019-12-19 09:31 | XRay Report ---
LEFT KNEE 3 VIEWS CLINICAL HISTORY: Fall with left knee pain. FINDINGS: AP, crosstable lateral, and sunrise views of the left knee are obtained. No prior studies a re available for comparison at the time of dictation. The skeletal structures are osteopenic. No frac ture is seen. Moderate to advanced degenerative narrowing is seen in the medial and patellofemoral co mpartments. There are medial marginal osteophytes and degenerative beaking of the tibial spine. There is a joint effusion. Soft tissue edema is present around the knee. Atherosclerotic calcification is observed in the popliteal artery. IMPRESSION: 1. Soft tissue swelling and joint effusion with no fracture identified. 2. Osteopenia and degenerative change as above. Electronically signed by: Real Dennis M.D. 12/19/2019 9:30 AM
--- NOTE | 2019-12-19 10:05 | CT Scan Report ---
ABDOMEN AND PELVIS CT WITH ORAL CONTRAST CT DOSE: 762.39 mGycm HISTORY: Acute generalized abdominal pain. History of vaginal carcinoma. Abdominal pain with known v aginal CA. TECHNIQUE: Multiaxial CT images of the abdomen and pelvis were performed following the use of oral co ntrast. A dose lowering technique was utilized adhering to the principles of ALARA. COMPARISON STUDY: Chest CT of same day, PET CT 04/07/2010. FINDINGS: Linear bibasilar consolidative opacities with groundglass densities, right greater than left. Cystic foci of the basal right lower lobe measure up to 3.5 cm. Findings are suggestive of fibrosis with sup erimposed pneumonitis not excluded. There are a few bibasilar solid pulmonary nodules noted measuring up to 7 mm which appear stable from comparison. There is no pneumatosis or pneumoperitoneum. Cardiom egaly with coronary arterial calcifications. There are a few nonspecific prominent epicardial and per iesophageal lymph nodes. Limited evaluation of the solid abdominal organs without the use of IV contrast. There are at least 9 ill-defined hypodense hepatic lesions measuring up to approximately 1.6 cm which are new from the 20 10 exam. The spleen, pancreas and adrenal glands are unremarkable. Cholelithiasis with mild gallbladd er distention. No CT evidence of acute cholecystitis. Mildly enlarged periportal lymph nodes measure up to 11 mm. Prominent retroperitoneal lymph nodes measure up to approximately 8 mm. Prominent and mi ldly enlarged inguinal, pelvic sidewall and iliac chain lymph nodes are also present with a right ext ernal iliac chain lymph node measuring 1.7 x 1.5 cm on image 393 series 3. Right inguinal chain lymph nodes measure up to 10 mm. Ill-defined soft tissue mass with adjacent stranding involves the right p elvic sidewall deep to the piriformis muscle on image 348 series, 3 measures 2.7 x 1.7 cm. Extensive calcified plaque of the abdominal aorta and iliac arteries with multifocal luminal narrowing of the c ommon iliac arteries. The kidneys, ureters, urinary bladder and uterus are unremarkable. Asymmetric soft tissue prominence within the region of the left vaginal introitus on image 465 series 3. No discrete adnexal mass lesio ns. Mild amount of the distal esophageal wall thickening with possible tiny hiatal hernia. No bowel o bstruction. Postoperative changes of partial sigmoidectomy with colocolonic anastomosis. There is wal l thickening with inflammatory stranding throughout the entirety of the colon and rectum, most pronou nced within the cecum, ascending colon and hepatic flexure where there is marked wall thickening. [place] ileum is unremarkable. The appendix is noninflamed. Diastasis recti with tiny fat filled periumbilical hernias. Demineralized appearance of the bones. De generative changes of the spine, pelvis and hips. No definitely suspicious lytic or blastic osseous l esions. Lumbar levoscoliosis. IMPRESSION: 1. Diffuse colonic wall thickening with pericolonic stranding compatible with a pancolitis, likely in fectious or inflammatory. Wall thickening and inflammation is most pronounced within the cecum, ascen ding colon and hepatic flexure. 2. No bowel obstruction or pneumoperitoneum. 3. Prominent and enlarged adenopathy of the abdomen and pelvis as above is suspicious for metastatic disease. 4. Limited exam without the use of IV contrast. There are however multiple new ill-defined hepatic le sions which are suggestive of hepatic metastatic disease. 5. Mass of the right pelvic sidewall deep to the piriformis muscle measuring up to 2.7 cm is also sug gestive of metastatic disease. 6. Soft tissue prominence of the left vaginal introitus may correlate with the patient's reported vag inal neoplasm. Correlate with pelvic examination findings. 7. Please refer to chest CT of same day for pulmonary findings. ACT 112: Positive. There are findings on this exam that require communication between the performing entity and the patient following Patient Test Result Information Act ([place] Act 112) guidelines. The above report was generated using voice recognition software. It may contain grammatical, syntax o r spelling errors. Dictated: 12/19/2019 9:10 AM Transcribed: 12/19/2019 9:57 AM [facility] [id number] [facility] Electronically signed by: Madi Feliciano M.D. 12/19/2019 10:04 AM
[2019-12-19] MEDS: POTASSIUM CHLORIDE 20 MEQ TABCR PO SCH (10:13)
[2019-12-19] MEDS: LOSARTAN POTASSIUM 50 MG TAB PO SCH (10:13)
[2019-12-19] MEDS: MULTIVITAMIN TAB PO SCH (10:13)
[2019-12-19] MEDS: FOLIC ACID 1 MG TAB PO SCH (10:14)
[2019-12-19] MEDS: AMLODIPINE BESYLATE 5 MG TAB PO SCH (10:14)
[2019-12-19] MEDS: FUROSEMIDE 40 MG TAB PO SCH (10:14)
[2019-12-19] MEDS: PANTOprazole 40 MG TAB PO SCH (10:14)
[2019-12-19] MEDS: THIAMINE HCL 100 MG TAB PO SCH (10:15)
[2019-12-19] MEDS: ASPIRIN 81 MG ECTAB PO SCH (10:15)
[2019-12-19 12:49] LABS: Appearance Urine Cloudy (Clear); Bacteria Urine Automated Negative (Negative); Bilirubin Urine Negative (Negative); Blood Urine Trace (Negative); Color Urine Dark Yellow; Epithelial Cell Urine Auto >30 /lpf (0-5); Glucose Urine UA Negative (Negative); Ketones Urine Negative (Negative); Leukocyte Esterase Urine 2+ (Negative); Nitrite Urine Negative (Negative); Protein Urine Trace (Negative); Specific Gravity Urine 1.021 (1.000-1.030); Urobilinogen Urine Negative (Negative); WBC Urine Automated >30 /hpf (0-5)
--- NOTE | 2019-12-19 14:15 | Electrocardiogram Report ---
Test Reason : Blood Pressure : / mmHG Vent. Rate : 074 BPM Atrial Rate : 074 BPM P-R Int : 194 ms QRS Dur : 112 ms QT Int : 444 ms P-R-T Axes : 045 -32 -22 degrees QTc Int : 492 ms Normal sinus rhythm Left axis deviation Cannot rule out Anterior infarct , age undetermined Abnormal ECG No previous ECGs available Confirmed by Ronald Fontenot ([id number]) on 12/19/2019 2:14:37 PM Referred By: REFERRED SELF Confirmed By:Ronald Fontenot
[2019-12-19] MEDS ORDERED: WARFARIN SOD 6 MG TAB PO SCH (16:00)
[2019-12-19] MEDS: LEVOFLOXACIN/D5W 750 MG/150 ML BAG IV SCH (20:17)
--- NOTE | 2019-12-19 22:28 | Hospitalist Progress Note ---
Date of Service December 19, 2019 Assessment & Plan (1) Pneumonia involving right lung: Admit tele CT scan shows bilateral infiltrate. Procal is negative. prn DUO nebs WBC have been improving. (2) Vaginal cancer: Seen and followed in [place] Had abdominal pain on the day of admission CT scan of abd/pelvis completed. Shows tumor and lymphadenopathy which is likely the culprit of her abdominal pain. (3) Hypercoagulable state: Warfarin lifelong INR therapeutic at 2.5 Continue warfarin daily INR (4) H/O deep venous thrombosis: (5) Knee pain, left: X-ray L knee (6) Hypokalemia: continues to require replacement. will monitor her potassium on 12/20 again. (7) Hypomagnesemia: resolved. (8) Hyponatremia: improved to 129. will monitor. Likely SIADH (9) Abdominal pain, vomiting, and diarrhea: ordered c diff testing due to antibiotic use and worsening diarrhea. awaiting resultes Admission and Anticipated Discharge Date Admission Date: December 18, 2019 Subjective Patient reports that her breathing has improved. Her main concern today is her abdominal pain. She does report that her stools have been loose today. Review of Systems Review of Systems: All systems reviewed & are unremarkable except as noted in HPI & below Physical Exam Physical Exam: General- adult female, NAD Head- atraumatic Eyes- PERRL, EOMI, anicteric ENT- oropharynx clear Neck- supple, no JVD, no adenopathy, no thyromegaCTA b/l no R/R/W.clear to auscultation and percussion Heart- regular rhythm; no murmur, no gallop, no rub appreciated Abdomen- normal bowel sounds, soft, nontender. Extremities- no pretibial edema, no calf tenderness; peripheral pulses intact. + ecchymosis over the patella Left. Neuro- alert, oriented x 3; PERRL, EOMI; herb grower II-XII grossly intact, non-focal. Skin- warm & dry Results & Data ([facility]) Vital Signs (Past 12 Hours) Vital Signs Temp Pulse Resp BP Pulse Ox 12/19/19 18:47 37.3 C 81 20 100/63 91 12/19/19 15:07 37.0 C 75 18 95/60 L 93 12/19/19 11:25 36.9 C 73 18 99/63 L 92 PG Care Time/CCT Total # of Minutes Spent Total Time Spent with Patient: Total time spent is greater than 50% in coordination of care (as documented) at patient's floor/unit and/or counseling patient: Coding Level of Care Code 82755 Subseq Hosp Care Lvl 3 Diagnoses Pneumonia involving right lung J18.9 Vaginal cancer C52 Hypercoagulable state D68.59 H/O deep venous thrombosis Z86.718 Knee pain, left M25.562 Hypokalemia E87.6 Hypomagnesemia E83.42 Hyponatremia E87.1 Abdominal pain, vomiting, and diarrhea R10.9; R11.10; R19.7 Time Spent (min) 35
[2019-12-20] MEDS: NSS + 20MEQ KCL 20 MEQ/1,000 ML BAG IV SCH ×2 (05:34→16:06)
[2019-12-20] MEDS: LEVOTHYROXINE SODIUM 125 MCG TABLET PO SCH (05:54)
[2019-12-20 07:49] LABS: Basophils # (auto) 0.02 K/uL (0-0.2); Basophils % (auto) 0.2 %; Eosinophils # (auto) 0.03 K/uL (0-0.5); Eosinophils % (auto) 0.3 %; Hematocrit (blood only) 31.1 % (37-47); Hemoglobin 10.2 g/dL (12.0-16.0); Immature Granulocytes # (auto) 0.02 K/uL (0.00-0.02); Immature Granulocytes % (auto) 0.2 %; Lymphocytes # (auto) 0.92 K/uL (1.2-3.4); Lymphocytes % (auto) 8.4 %; Mean Corpuscular Hemoglobin 27.6 pg (25-34); Mean Corpuscular Hgb Conc 32.8 g/dL (32-36); Mean Corpuscular Volume 84.1 fL (80-100); Mean Platelet Volume 8.1 fL (7.4-10.4); Monocytes # (auto) 0.74 K/uL (0.11-0.59); Monocytes % (auto) 6.7 %; Neutrophils # (auto) 9.26 K/uL (1.4-6.5); Neutrophils % (auto) 84.2 %; Platelet Count 183 K/uL (130-400); RDW Coefficient of Variation 13.8 % (11.5-14.5); RDW Standard Deviation 42.4 fL (36.4-46.3); White Blood Count 10.99 K/uL (4.8-10.8)
[2019-12-20 08:00] LABS: INR 2.5 (0.9-1.1); Prothrombin Time 23.8 Seconds (9.0-12.0)
[2019-12-20 08:24] LABS: BUN Creatinine Ratio 11.1 (10-20); Calcium 8.3 mg/dl (8.5-10.1); Creatinine Clr Calc Pharmacy 142.8 ml/min; Est GFR (African American) 124.6; Est GFR (Non-African American) 107.5; Potassium 3.4 mmol/L (3.5-5.1)
[2019-12-20] MEDS: MULTIVITAMIN TAB PO SCH (08:30)
[2019-12-20] MEDS: POTASSIUM CHLORIDE 20 MEQ TABCR PO SCH (08:30)
[2019-12-20] MEDS: PANTOprazole 40 MG TAB PO SCH (08:31)
[2019-12-20] MEDS: ASPIRIN 81 MG ECTAB PO SCH (08:31)
[2019-12-20] MEDS: FUROSEMIDE 40 MG TAB PO SCH (08:31)
[2019-12-20] MEDS: AMLODIPINE BESYLATE 5 MG TAB PO SCH (08:32)
[2019-12-20] MEDS: FOLIC ACID 1 MG TAB PO SCH (08:32)
[2019-12-20] MEDS: LOSARTAN POTASSIUM 50 MG TAB PO SCH (08:32)
[2019-12-20] MEDS: THIAMINE HCL 100 MG TAB PO SCH (08:32)
[2019-12-20] MEDS: metroNIDAZOLE 500 MG/100 ML BAG IV SCH ×2 (08:42→16:05)
--- NOTE | 2019-12-20 10:26 | Orthopedic Consultation ---
Date of Consultation December 20, 2019 Assessment & Plan (1) Knee pain, left: X-rays reviewed. No fractures noted. Effusion noted. Degenerative changes noted on the medial aspect and patellofemoral area. Currently she states that the knee is feeling better and she is able to weight-bear as tolerated without difficulty. Range of motion is not overtly painful at this time. I do not feel that her effusion is infectious in nature. With her recent fall and therapeutic INR, this is most likely secondary to hemarthrosis from trauma. I do not believe there is a need for any aspiration at this time. I will have Dr. Harrington review the films and give any further input today. Ice as needed to the left knee. Gentle range of motion. She can be weightbearing as tolerated. We discussed that she should limit her ambulation initially and increase as tolerated. If the effusion worsens over time, it may need to be aspirated. Please call with any worsening symptoms. She can follow up with Dr. Harrington in 2 weeks if her symptoms persist or worsen. History of Present Illness Reason for Consultation: Left knee pain/effusion Attending Physician: Navid Rubin MD History of Present Illness Patient is a 64-year white female who was recently admitted for pneumonia. Prior to admission the patient was not feeling well and had generalized weakness. She ended up losing strength and falling onto her knees. She states that she basically hit the left knee during the fall but not really the right knee. Since that time she has had some swelling and some discomfort in the knee. We have been asked to see her for her left knee pain. Allergies Allergy/AdvReac Type Severity Reaction Status Date / Time adhesive tape Allergy Verified 09/13/19 08:04 Home Medications Home Medications Medication Instructions Recorded Confirmed Type aspirin 81 mg tablet,delayed 81 mg PO DAILY 04/12/19 12/18/19 History release folic acid 1 mg tablet 1 mg PO DAILY 04/12/19 12/18/19 History furosemide 40 mg tablet 40 mg PO DAILY 04/12/19 12/18/19 History levothyroxine 125 mcg capsule 125 mcg PO DAILY 04/12/19 12/18/19 History losartan 50 mg tablet 50 mg PO DAILY 04/12/19 12/18/19 History warfarin 5 mg tablet See Rx Instructions .ROUTE .COMPLEX 04/12/19 12/18/19 History amlodipine [Norvasc] 10 mg PO DAILY 12/18/19 12/18/19 History hydrochlorothiazide 25 mg PO DAILY 12/18/19 12/18/19 History multivitamin 1 tab PO DAILY 12/18/19 12/18/19 History potassium chloride 20 meq PO DAILY 12/18/19 12/18/19 History thiamine HCl (vitamin B1) [Vitamin 100 mg PO DAILY 12/18/19 12/18/19 History B-1] Patient History Medical History H/O deep venous thrombosis Hypercoagulable state Hypothyroid (Chronic) Lupus (Chronic) Sciatica (Chronic) Spinal stenosis (Chronic) Vaginal cancer Surgical History History of intestinal surgery (Resolved) S/P tubal ligation (Resolved) Social History Preferred Language: Georgian Communication Ability: Effective Visual Impairment: No Limitations Hearing Ability: Normal Digital Strategy Specialist Required: No Beliefs That Will Affect Care: None marital status: Current Living Situation: Spouse Feels Safe at Home: Yes Smoking Status: Current every day smoker Tobacco Type: cigarettes ; Age Quit Using Tobacco: 63 ; Cigarettes Per Day: 10 ; Tobacco Cessation Education Requested by Patient: No Hx Alcohol Use: Yes Alcohol type: hard liquor Alcohol Intake Frequency: Holidays/Special Occasions Hx Substance Use: No Physical Exam Physical Exam: Currently the patient is sitting in a chair at the bedside. She is awake, alert and oriented. Does not appear in acute distress. Focusing the exam on her left lower extremity, she has the knee flexed to approximately 90 degrees at this time she is capable of full extension at this time and able to do a straight leg raise without difficulty. She is noted is having a effusion of the left knee which is not overtly tense. In comparison to the right knee the effusion is noticeable however the patient does not appear to be having that much in the way of pain with the effusion. There is no overt warmth or erythema noted of the knee at this time. Flexion to approximately 100 110 degrees. Patient is able to do so without having a lot of pain. Venous stasis changes noted of both lower extremities. Results & Data ([facility]) Vital Signs (Past 12 Hours) Vital Signs Temp Pulse Pulse Resp BP Pulse Ox 12/20/19 08:43 73 102/58 L 12/20/19 08:30 69 12/20/19 07:30 36.9 C 69 20 98/58 L 90 12/20/19 03:58 37.4 C 73 15 91/50 L 96 12/19/19 23:40 86 12/19/19 23:34 37.2 C 80 15 90/51 L 90 Laboratory Results Laboratory Results WBC 10.99 K/uL (4.8-10.8) H 12/20/19 07:37 RBC 3.70 M/uL (4.2-5.4) L 12/20/19 07:37 Hgb 10.2 g/dL (12.0-16.0) L 12/20/19 07:37 Hct 31.1 % (37-47) L 12/20/19 07:37 MCV 84.1 fL (80-100) 12/20/19 07:37 MCH 27.6 pg (25-34) 12/20/19 07:37 MCHC 32.8 g/dL (32-36) 12/20/19 07:37 RDW Std Deviation 42.4 fL (36.4-46.3) 12/20/19 07:37 RDW Coeff of Laura 13.8 % (11.5-14.5) 12/20/19 07:37 Plt Count 183 K/uL (130-400) 12/20/19 07:37 MPV 8.1 fL (7.4-10.4) 12/20/19 07:37 Immature Gran % (Auto) 0.2 % 12/20/19 07:37 Neut % (Auto) 84.2 % 12/20/19 07:37 Lymph % (Auto) 8.4 % 12/20/19 07:37 [place] % (Auto) 6.7 % 12/20/19 07:37 Eos % (Auto) 0.3 % 12/20/19 07:37 Baso % (Auto) 0.2 % 12/20/19 07:37 Immature Gran # (Auto) 0.02 K/uL (0.00-0.02) 12/20/19 07:37 Neut # (Auto) 9.26 K/uL (1.4-6.5) H 12/20/19 07:37 Lymph # (Auto) 0.92 K/uL (1.2-3.4) L 12/20/19 07:37 [place] # (Auto) 0.74 K/uL (0.11-0.59) H 12/20/19 07:37 Eos # (Auto) 0.03 K/uL (0-0.5) 12/20/19 07:37 Baso # (Auto) 0.02 K/uL (0-0.2) 12/20/19 07:37 PT 23.8 Seconds (9.0-12.0) H 12/20/19 07:37 INR 2.5 (0.9-1.1) H 12/20/19 07:37 Sodium 132 mmol/L (136-145) L 12/20/19 07:37 Potassium 3.4 mmol/L (3.5-5.1) L 12/20/19 07:37 Chloride 100 mmol/L (98-107) 12/20/19 07:37 Carbon Dioxide 26 mmol/L (21-32) 12/20/19 07:37 Anion Gap 6.0 (3-11) 12/20/19 07:37 BUN 5 mg/dl (7-18) L 12/20/19 07:37 Creatinine 0.43 mg/dl (0.6-1.2) L 12/20/19 07:37 Est Cr Clr Drug Dosing 142.8 ml/min 12/20/19 07:37 Est GFR ( Amer) 124.6 12/20/19 07:37 Est GFR (Non-Af Amer) 107.5 12/20/19 07:37 BUN/Creatinine Ratio 11.1 (10-20) 12/20/19 07:37 Glucose 86 mg/dl (70-99) 12/20/19 07:37 Osmolality 270 mOsm/kg (280-300) L 12/20/19 08:32 Calcium 8.3 mg/dl (8.5-10.1) L 12/20/19 07:37 Magnesium 1.9 mg/dl (1.8-2.4) 12/19/19 07:18 Total Bilirubin 0.4 mg/dl (0.2-1) 12/18/19 20:43 AST 14 U/L (15-37) L 12/18/19 20:43 ALT 14 U/L (12-78) 12/18/19 20:43 Alkaline Phosphatase 82 U/L (45-117) 12/18/19 20:43 Total Creatine Kinase 41 U/L (26-192) 12/18/19 20:43 Troponin I < 0.015 ng/ml (0-0.045) 12/18/19 20:43 Total Protein 7.5 gm/dl (6.4-8.2) 12/18/19 20:43 Albumin 2.9 gm/dl (3.4-5.0) L 12/18/19 20:43 Globulin 4.6 gm/dl (2.5-4.0) H 12/18/19 20:43 Albumin/Globulin Ratio 0.6 (0.9-2) L 12/18/19 20:43 Procalcitonin 0.05 ng/ml (0-0.5) 12/19/19 11:28 TSH 2.780 uIu/ml (0.300-4.500) 12/18/19 20:43 Urine Color Dark Yellow 12/19/19 12:15 Urine Appearance Cloudy (Clear) A 12/19/19 12:15 Urine pH 7.0 (4.5-7.5) 12/19/19 12:15 Ur Specific [place] 1.021 (1.000-1.030) 12/19/19 12:15 Urine Protein Trace (Negative) H 12/19/19 12:15 Urine Glucose (UA) Negative (Negative) 12/19/19 12:15 Urine Ketones Negative (Negative) 12/19/19 12:15 Urine Blood Trace (Negative) H 12/19/19 12:15 Urine Nitrite Negative (Negative) 12/19/19 12:15 Urine Bilirubin Negative (Negative) 12/19/19 12:15 Urine Urobilinogen Negative (Negative) 12/19/19 12:15 Ur Leukocyte Esterase 2+ (Negative) H 12/19/19 12:15 Urine WBC (Auto) >30 /hpf (0-5) H 12/19/19 12:15 Urine RBC (Auto) 5-10 /hpf (0-4) H 12/19/19 12:15 U Hyaline Cast (Auto) 1-5 /lpf (0-5) 12/19/19 12:15 U Epithel Cells (Auto) >30 /lpf (0-5) H 12/19/19 12:15 Urine Bacteria (Auto) Negative (Negative) 12/19/19 12:15 Hepatitis C Ab Screen Neg (Neg) 12/19/19 07:18 Diagnostic Findings Patient: Fay CHAUDHARY Date: 12/18/19 MR#: [id number]: [address]T Acct ID:[id number]: [facility] [address] Zip: [place] [id number] Age: 64Location: 2N Sex: F Room/Bed: [facility] Att Phy: Nhan Weller M.D.Diagnosis: PNEUMONIA,RIGHT Estrellita Phy: Rudy Connor M.D.Service Date: 12/19/19 Fam Phy:Interpreting Phy: Real Dennis MD Admit Phy: Frank Villanueva, Ordering Phy: Frank Villanueva, cc: ~ LEFT KNEE 3 VIEWS CLINICAL HISTORY: Fall with left knee pain. FINDINGS: AP, crosstable lateral, and sunrise views of the left knee are obtained. No prior studies are available for comparison at the time of dictation. The skeletal structures are osteopenic. No fracture is seen. Moderate to advanced degenerative narrowing is seen in the medial and patellofemoral compartments. There are medial marginal osteophytes and degenerative beaking of the tibial spine. There is a joint effusion. Soft tissue edema is present around the knee. Atherosclerotic calcification is observed in the popliteal artery. IMPRESSION: 1. Soft tissue swelling and joint effusion with no fracture identified. 2. Osteopenia and degenerative change as above.
--- NOTE | 2019-12-20 10:27 | Gastrointestinal Consultation ---
Date of Consultation December 20, 2019 Assessment & Plan (1) Diarrhea: CT with pancolitis. Patient with antibiotic use & history of C diff. Suspect infectious etiology. Would rule this out prior to pursuing further work- up. -Check C diff, stool culture, gram stain stool -Daily probiotic -Further recommendations pending results of stool studies -Supportive care per primary team Thank you for allowing us to participate in the care of this patient. If you should have any further questions or concerns, do not hesitate to contact us at extension [phone] or [phone]. Supervising Physician Co-Signing Physician Notes Agree with LORRIE Mendoza Abd: Soft, NT, ND, +BS No stool collected at present Recommend Stool for C-diff Continue supportive care History of Present Illness Reason for Consultation: Pancolitis Attending Physician: Navid Rubin MD History of Present Illness Patient is a 64 yo female with metastatic vaginal cancer hospitalized with pneumonia. Patient reports a 2 week history of diarrhea, nausea, & vomiting. A C T scan of the abdomen/pelvis indicated a pancolitis. The patient reports 10+ episodes of loose stool daily. She endorses lower abdominal cramping. She has a history of C diff. She was last treated in September 2019 during which time she was admitted to [facility]. She reports a colonoscopy in [place] within the past 5 years that she reports indicated polyps. She denies rectal bleeding. She denies a family history of GI malignancy. WBC count is 10.99. H/H 10.2/31.1. She offers no further complaints at present. Allergies Allergy/AdvReac Type Severity Reaction Status Date / Time adhesive tape Allergy Verified 09/13/19 08:04 Home Medications Home Medications Medication Instructions Recorded Confirmed Type aspirin 81 mg tablet,delayed 81 mg PO DAILY 04/12/19 12/18/19 History release folic acid 1 mg tablet 1 mg PO DAILY 04/12/19 12/18/19 History furosemide 40 mg tablet 40 mg PO DAILY 04/12/19 12/18/19 History levothyroxine 125 mcg capsule 125 mcg PO DAILY 04/12/19 12/18/19 History losartan 50 mg tablet 50 mg PO DAILY 04/12/19 12/18/19 History warfarin 5 mg tablet See Rx Instructions .ROUTE .COMPLEX 04/12/19 12/18/19 History amlodipine [Norvasc] 10 mg PO DAILY 12/18/19 12/18/19 History hydrochlorothiazide 25 mg PO DAILY 12/18/19 12/18/19 History multivitamin 1 tab PO DAILY 12/18/19 12/18/19 History potassium chloride 20 meq PO DAILY 12/18/19 12/18/19 History thiamine HCl (vitamin B1) [Vitamin 100 mg PO DAILY 12/18/19 12/18/19 History B-1] Patient History Medical History H/O deep venous thrombosis Hypercoagulable state Hypothyroid (Chronic) Lupus (Chronic) Sciatica (Chronic) Spinal stenosis (Chronic) Vaginal cancer Surgical History History of intestinal surgery (Resolved) S/P tubal ligation (Resolved) Social History Preferred Language: Mauritian Communication Ability: Effective Visual Impairment: No Limitations Hearing Ability: Normal Forwarder Operator Required: No Beliefs That Will Affect Care: None marital status: Current Living Situation: Spouse Feels Safe at Home: Yes Smoking Status: Current every day smoker Tobacco Type: cigarettes ; Age Quit Using Tobacco: 63 ; Cigarettes Per Day: 10 ; Tobacco Cessation Education Requested by Patient: No Hx Alcohol Use: Yes Alcohol type: hard liquor Alcohol Intake Frequency: Holidays/Special Occasions Hx Substance Use: No Review of Systems Constitutional: + fatigue; no fever, no chills and no weight loss Eyes: no acute complaints Ear, Nose, Mouth, Throat: no acute issues Respiratory: no cough and no dyspnea Cardiovascular: no chest pain Gastrointestinal: + abdominal pain and + diarrhea/loose stools Integumentary: no rash Neurologic: no dizziness Psychiatric: no acute issues Physical Exam Constitutional: WD/WN, vitals as above Respiratory: normal respiratory effort, lungs clear to auscultation Cardiovascular: Rate/Rhythm: regular rate and regular rhythm Heart Sounds: + murmur Gastrointestinal (Abdomen): normal bowel sounds, soft, nontender, no hepatosplenomegaly Musculoskeletal: no cyanosis or clubbing, extremities motor strength 5/5 Skin: no rashes, warm and dry Psychiatric: A+Ox3, euthymic affect Results & Data ([facility]) Vital Signs (Past 12 Hours) Vital Signs Temp Pulse Pulse Resp BP Pulse Ox 12/20/19 08:43 73 102/58 L 12/20/19 08:30 69 12/20/19 07:30 36.9 C 69 20 98/58 L 90 12/20/19 03:58 37.4 C 73 15 91/50 L 96 12/19/19 23:40 86 12/19/19 23:34 37.2 C 80 15 90/51 L 90 PG Care Time/CCT Total # of Minutes Spent Total Time Spent with Patient: Total time spent is greater than 50% in coordination of care (as documented) at patient's floor/unit and/or counseling patient: Coding Level of Care Code 86229 Inpt Consult Level 4 Diagnoses Diarrhea R19.7 Diarrhea type: unspecified type (1) Diarrhea Diarrhea type: unspecified type Qualified Code(s): R19.7 - Diarrhea, unspecified
[2019-12-20] MEDS: SACCHAROMYCES BOULARDII 250 MG CAP PO SCH (12:14)
--- NOTE | 2019-12-20 13:07 | Hospitalist Progress Note ---
Date of Service December 20, 2019 Assessment & Plan (1) Pneumonia involving right lung: No clinical pneumonia on physical examination or subjectively. X-ray findings are probably chronic. (2) Vaginal cancer: Seen and followed in [place] Had abdominal pain on the day of admission CT scan of abd/pelvis results noted. Pancolitis is noted which is causing her current symptoms. She also has metastatic vaginal cancer (3) Hypercoagulable state: Warfarin lifelong INR therapeutic at 2.5 Continue warfarin daily INR (4) H/O deep venous thrombosis: (5) Knee pain, left: X-ray L knee reveals effusion. Orthopedic consultation appreciated. No intervention necessary at this time. Conservative management. (6) Hypokalemia: continues to require replacement. Serial potassium levels. Continue replacement. (7) Hypomagnesemia: resolved. (8) Hyponatremia: improved to 132. will monitor. Possibly SIADH (9) Abdominal pain, vomiting, and diarrhea: ordered c diff testing due to antibiotic use and worsening diarrhea. awaiting resultes (10) Pancolitis: Suspect underlying C. difficile enteritis. She has had recent antibiotic therapy. This would account for her diffuse abdominal discomfort, pancolitis and loose stools. Oral vancomycin therapy started. C. difficile toxin assay pending. If positive, would discontinue IV antibiotics. Gastroenterology consultation requested. Present on Admission?: Yes Admission and Anticipated Discharge Date Admission Date: December 18, 2019 Subjective Alert and oriented. Clinically the patient does not have pneumonia on physical examination. Chest x-ray findings are probably chronic and due to scarring and/or atelectasis. Her primary complaint was abdominal pain and diarrhea. She has had antibiotics off and on for the past several months and I suspect she has underlying C. difficile enteritis. Stool for C. difficile toxin assay is pending. Gastroenterology consult pending. Start oral vancomycin. Orthopedics evaluated the left knee which reveal some evidence of effusion. However, her range of motion is normal and she has minimal complaints. We will simply observe this for now. Sodium is up to 132, potassium up to 3.4, magnesium up to 1.9. INR therapeutic at 2.5. Review of Systems Review of Systems: All systems reviewed & are unremarkable except as noted in HPI & below Gastrointestinal: Loose stools. Diffuse mild abdominal discomfort Physical Exam Constitutional: WD/WN, vitals as above Eyes: PERRL, conjunctivae normal, anicteric sclerae ENMT: external ear and nose normal, oropharynx normal Neck: trachea midline, no thyromegaly Respiratory: normal respiratory effort, lungs clear to auscultation Cardiovascular: RRR, no murmur, no edema Gastrointestinal (Abdomen): Active bowel sounds. Diffuse mild tenderness. No distention Musculoskeletal: no cyanosis or clubbing, extremities motor strength 5/5 Skin: no rashes, warm and dry Neurologic: PERRL, EOMI, accommodation nl, no face palsy, no dysarthria CN's II-XI intact bilaterally Psychiatric: A+Ox3, euthymic affect [facility]) Vital Signs (Past 12 Hours) Vital Signs Temp Pulse Pulse Resp BP Pulse Ox 12/20/19 11:50 36.9 C 85 20 97/59 L 98 12/20/19 08:43 73 102/58 L 12/20/19 08:30 69 12/20/19 07:30 36.9 C 69 20 98/58 L 90 12/20/19 03:58 37.4 C 73 15 91/50 L 96 Diagnostic Findings 12/20/19 07:37 12/20/19 07:37 PG Care Time/CCT Total # of Minutes Spent Total Time Spent with Patient: Total time spent is greater than 50% in coordination of care (as documented) at patient's floor/unit and/or counseling patient: Coding Level of Care Code 16259 Subseq Hosp Care Lvl 3 Diagnoses Pneumonia involving right lung J18.9 Vaginal cancer C52 Hypercoagulable state D68.59 H/O deep venous thrombosis Z86.718 Knee pain, left M25.562 Hypokalemia E87.6 Hypomagnesemia E83.42 Hyponatremia E87.1 Abdominal pain, vomiting, and diarrhea R10.9; R11.10; R19.7 Pancolitis K51.00
[2019-12-20] MEDS: WARFARIN SOD 5 MG TAB PO SCH (16:07)
[2019-12-20] MEDS: RASPBERRY SYRUP 5 ML UDP PO SCH (18:59)
[2019-12-20] MEDS: VANCOMYCIN HCL 125 MG/2.5ML SOLN PO SCH (18:59)
[2019-12-20] MEDS: LEVOFLOXACIN/D5W 750 MG/150 ML BAG IV SCH (20:04)
[2019-12-21] MEDS: VANCOMYCIN HCL 125 MG/2.5ML SOLN PO SCH ×5 (00:23→23:53)
[2019-12-21] MEDS: metroNIDAZOLE 500 MG/100 ML BAG IV SCH ×2 (00:23→08:39)
[2019-12-21] MEDS: RASPBERRY SYRUP 5 ML UDP PO SCH ×5 (00:23→23:53)
[2019-12-21] MEDS: NSS + 20MEQ KCL 20 MEQ/1,000 ML BAG IV SCH ×2 (05:59→14:43)
[2019-12-21] MEDS: LEVOTHYROXINE SODIUM 125 MCG TABLET PO SCH (05:59)
[2019-12-21 07:44] LABS: Basophils # (auto) 0.01 K/uL (0-0.2); Basophils % (auto) 0.1 %; Eosinophils # (auto) 0.07 K/uL (0-0.5); Eosinophils % (auto) 0.7 %; Hematocrit (blood only) 29.9 % (37-47); Hemoglobin 9.8 g/dL (12.0-16.0); Immature Granulocytes # (auto) 0.04 K/uL (0.00-0.02); Immature Granulocytes % (auto) 0.4 %; Lymphocytes # (auto) 0.94 K/uL (1.2-3.4); Lymphocytes % (auto) 9.4 %; Mean Corpuscular Hemoglobin 27.6 pg (25-34); Mean Corpuscular Hgb Conc 32.8 g/dL (32-36); Mean Corpuscular Volume 84.2 fL (80-100); Mean Platelet Volume 8.1 fL (7.4-10.4); Monocytes # (auto) 0.81 K/uL (0.11-0.59); Monocytes % (auto) 8.1 %; Neutrophils # (auto) 8.13 K/uL (1.4-6.5); Neutrophils % (auto) 81.3 %; Platelet Count 202 K/uL (130-400); RDW Coefficient of Variation 13.8 % (11.5-14.5); RDW Standard Deviation 42.4 fL (36.4-46.3); Red Blood Count 3.55 M/uL (4.2-5.4)
[2019-12-21 08:03] LABS: INR 2.1 (0.9-1.1); Prothrombin Time 20.1 Seconds (9.0-12.0)
[2019-12-21] MEDS: AMLODIPINE BESYLATE 5 MG TAB PO SCH (08:15)
[2019-12-21] MEDS: SACCHAROMYCES BOULARDII 250 MG CAP PO SCH (08:16)
[2019-12-21] MEDS: FOLIC ACID 1 MG TAB PO SCH (08:16)
[2019-12-21] MEDS: FUROSEMIDE 40 MG TAB PO SCH (08:16)
[2019-12-21] MEDS: THIAMINE HCL 100 MG TAB PO SCH (08:16)
[2019-12-21] MEDS: LOSARTAN POTASSIUM 50 MG TAB PO SCH (08:16)
[2019-12-21] MEDS: ASPIRIN 81 MG ECTAB PO SCH (08:16)
[2019-12-21] MEDS: POTASSIUM CHLORIDE 20 MEQ TABCR PO SCH (08:17)
[2019-12-21] MEDS: PANTOprazole 40 MG TAB PO SCH (08:17)
[2019-12-21] MEDS: MULTIVITAMIN TAB PO SCH (08:17)
[2019-12-21 08:18] LABS: BUN Creatinine Ratio 14.3 (10-20); Calcium 8.4 mg/dl (8.5-10.1); Creatinine Clr Calc Pharmacy 146.1 ml/min; Est GFR (African American) 124.6; Est GFR (Non-African American) 107.5; Potassium 3.4 mmol/L (3.5-5.1)
--- NOTE | 2019-12-21 11:11 | Progress Note ---
Date of Service December 21, 2019 Assessment & Plan Admission and Anticipated Discharge Date Admission Date: December 18, 2019 Subjective Patient was seen and examined today, feels fine, denies abdominal pain, nausea or vomiting. No BM since 2 AM. Still did not collect stool to check for CDI. On exam: Vitals normal Abdomen soft, slightly gaseous distention, + BS Labs: reviewed No leukocytosis. BUN/Cr normal Hypokalemia Recommend: Please collect stool to r/o CDI though patient is anyway started on PO Vanc and Flagyl since yesterday. Results & Data ([facility]) Vital Signs (Past 12 Hours) Vital Signs Temp Pulse Pulse Resp BP BP Pulse Ox 12/21/19 07:57 36.9 C 70 20 101/64 92 12/21/19 07:09 71 12/21/19 05:08 37.1 C 66 17 103/64 95 12/21/19 02:47 81 12/21/19 00:34 37.2 C 77 19 100/60 90
[2019-12-21] MEDS: WARFARIN SOD 5 MG TAB PO SCH (16:48)
--- NOTE | 2019-12-21 19:08 | Hospitalist Progress Note ---
Date of Service December 21, 2019 Assessment & Plan (1) Pancolitis: concern for c diff infection. started empirically on PO vanco on 12/20/2019. unfortunately we have yet been unable to verify if she indeed has c diff or something else. await formal c.diff testing and stool cx. symptomatic care in meantime. GI following. (2) Hyponatremia: 2nd to volume depletion and previous HCTZ use. improving nicely with IV fluids. bmp in am. HCTZ on hold. (3) Hypomagnesemia: replaced, resolved (4) Hypokalemia: nearly normal at 3.4 today cont supplementation HCTZ being held (5) Vaginal cancer: s/p recent treatment/surgery at [facility] for such will need f/u post-d/c she apparently has a PET-CT scheduled [place] later this [place] [facility] [place] (6) H/O deep venous thrombosis: on lifelong anticoagulation w/ coumadin daily INR cont coumadin (7) Hypercoagulable state: cause of previous VTE on lifelong coumadin (8) Hypothyroid: TSH at admission wnl cont synthroid w/o changes Admission and Anticipated Discharge Date Admission Date: December 18, 2019 Subjective pt c/o ongoing diarrhea - 2 episodes earlier today. unable to collect the stool - missed the "hat" or it was mixed with urine. c/o abdominal bloating. no nausea/vomiting. is eating/drinking despite her abdomen. Review of Systems Constitutional: no fever and no chills Respiratory: no dyspnea Cardiovascular: no chest pain Gastrointestinal: + abdominal pain and + bloating; no vomiting Physical Exam Constitutional: no acute distress and no altered mental status ENMT: external ear and nose normal, oropharynx normal Respiratory: normal respiratory effort, lungs clear to auscultation Cardiovascular: Rate/Rhythm: regular rate and regular rhythm Heart Sounds: normal S1 and normal S2; no murmur Vessels: + bounding carotid pulses, abdominal aortic pulse present and brachial pulses present; no JVD Extremities: no edema Gastrointestinal (Abdomen): Inspection/Auscultation: + abdomen distended and normal bowel sounds Percussion/Palpation: + abdomen tender (mild); no guarding and no hepatosplenomegaly Psychiatric: Orientation: alert and oriented x 3 Results & Data ([facility]) Vital Signs (Past 12 Hours) Vital Signs Temp Pulse Pulse Resp BP BP Pulse Ox 12/21/19 18:51 75 12/21/19 15:25 36.8 C 72 16 103/66 95 12/21/19 12:33 36.8 C 74 18 114/67 90 12/21/19 07:57 36.9 C 70 20 101/64 92 12/21/19 07:09 71 Laboratory Results Laboratory Results - last 24 hr 12/21/19 12/21/19 12/21/19 07:19 07:19 07:19 WBC 10.00 RBC 3.55 L Hgb 9.8 L Hct 29.9 L MCV 84.2 MCH 27.6 MCHC 32.8 RDW Std Deviation 42.4 RDW Coeff of Laura 13.8 Plt Count 202 MPV 8.1 Immature Gran % (Auto) 0.4 Neut % (Auto) 81.3 Lymph % (Auto) 9.4 Young % (Auto) 8.1 Eos % (Auto) 0.7 Baso % (Auto) 0.1 Immature Gran # (Auto) 0.04 H Neut # (Auto) 8.13 H Lymph # (Auto) 0.94 L Young # (Auto) 0.81 H Eos # (Auto) 0.07 Baso # (Auto) 0.01 PT 20.1 H INR 2.1 H Sodium 134 L Potassium 3.4 L Chloride 104 Carbon Dioxide 23 Anion Gap 6.0 BUN 6 L Creatinine 0.43 L Est Cr Clr Drug Dosing 146.1 Est GFR ( Amer) 124.6 Est GFR (Non-Af Amer) 107.5 BUN/Creatinine Ratio 14.3 Glucose 87 Calcium 8.4 L PG Care Time/CCT Total # of Minutes Spent Total Time Spent with Patient: Total time spent is greater than 50% in coordination of care (as documented) at patient's floor/unit and/or counseling patient: Coding Level of Care Code 71076 Subseq Hosp Care Lvl 2 Diagnoses Pancolitis K51.00 Hyponatremia E87.1 Hypomagnesemia E83.42 Hypokalemia E87.6 Vaginal cancer C52 H/O deep venous thrombosis Z86.718 Hypercoagulable state D68.59 Hypothyroid E03.9
[2019-12-22] MEDS: RASPBERRY SYRUP 5 ML UDP PO SCH ×2 (05:27→12:49)
[2019-12-22] MEDS: VANCOMYCIN HCL 125 MG/2.5ML SOLN PO SCH ×2 (05:27→12:49)
[2019-12-22] MEDS: LEVOTHYROXINE SODIUM 125 MCG TABLET PO SCH (05:27)
[2019-12-22 06:40] LABS: Basophils # (auto) 0.02 K/uL (0-0.2); Basophils % (auto) 0.2 %; Eosinophils # (auto) 0.11 K/uL (0-0.5); Eosinophils % (auto) 1.3 %; Hematocrit (blood only) 31.2 % (37-47); Hemoglobin 10.1 g/dL (12.0-16.0); Immature Granulocytes # (auto) 0.04 K/uL (0.00-0.02); Immature Granulocytes % (auto) 0.5 %; Lymphocytes # (auto) 0.86 K/uL (1.2-3.4); Mean Corpuscular Hemoglobin 27.4 pg (25-34); Mean Corpuscular Hgb Conc 32.4 g/dL (32-36); Mean Corpuscular Volume 84.6 fL (80-100); Monocytes # (auto) 0.77 K/uL (0.11-0.59); Platelet Count 212 K/uL (130-400); RDW Standard Deviation 43.3 fL (36.4-46.3); Red Blood Count 3.69 M/uL (4.2-5.4)
[2019-12-22 07:14] LABS: BUN Creatinine Ratio 15.6 (10-20); Calcium 8.2 mg/dl (8.5-10.1); Creatinine Clr Calc Pharmacy 153.7 ml/min; Est GFR (African American) 126.5; Est GFR (Non-African American) 109.2; Potassium 3.4 mmol/L (3.5-5.1)
[2019-12-22] MEDS: POTASSIUM CHLORIDE 20 MEQ TABCR PO SCH (08:18)
[2019-12-22] MEDS: FOLIC ACID 1 MG TAB PO SCH (08:18)
[2019-12-22] MEDS: SACCHAROMYCES BOULARDII 250 MG CAP PO SCH (08:18)
[2019-12-22] MEDS: LOSARTAN POTASSIUM 50 MG TAB PO SCH (08:19)
[2019-12-22] MEDS: THIAMINE HCL 100 MG TAB PO SCH (08:19)
[2019-12-22] MEDS: PANTOprazole 40 MG TAB PO SCH (08:19)
[2019-12-22] MEDS: ASPIRIN 81 MG ECTAB PO SCH (08:19)
[2019-12-22] MEDS: AMLODIPINE BESYLATE 5 MG TAB PO SCH (08:19)
[2019-12-22] MEDS: FUROSEMIDE 40 MG TAB PO SCH (08:19)
[2019-12-22] MEDS: MULTIVITAMIN TAB PO SCH (08:20)
--- NOTE | 2019-12-22 11:27 | Progress Note ---
Date of Service December 22, 2019 Assessment & Plan Admission and Anticipated Discharge Date Admission Date: December 18, 2019 Subjective Stool is positive for C.diff. Other labs shows no leukocytosis and normal BUN/Cr. Initial CT scan with no signs of toxic megacolon or ileus. Treatment as mild CDI with PO Vancomycin to complete a 14 days course. Results & Data ([facility]) Vital Signs (Past 12 Hours) Vital Signs Temp Pulse Pulse Resp BP Pulse Ox 12/22/19 11:25 36.6 C 81 20 99/64 L 96 12/22/19 07:58 37.0 C 73 20 112/69 90 12/22/19 07:15 76 12/22/19 04:00 37.1 C 77 20 101/61 92
[2019-12-22 11:28] LABS: Cdiff Antigen Positive
[2019-12-22 11:31] LABS: Cdiff Toxin A+B Positive Cdiff Toxin (Negative)
--- NOTE | 2019-12-22 13:25 | Discharge Summary ---
Date of Service December 22, 2019 Discharge Exam Constitutional no acute distress and no altered mental status ENMT external ear and nose normal, oropharynx normal Respiratory normal respiratory effort, lungs clear to auscultation Cardiovascular Rate/Rhythm: regular rate and regular rhythm Heart Sounds: normal S1 and normal S2; no murmur Vessels: + bounding carotid pulses, abdominal aortic pulse present and brachial pulses present; no JVD Extremities: no edema Gastrointestinal (Abdomen) Inspection/Auscultation: + abdomen distended and normal bowel sounds Percussion/Palpation: + abdomen tender (mild); no guarding and no hepatosplenomegaly Psychiatric Orientation: alert and oriented x 3 Discharge Data Allergies Allergy/AdvReac Type Severity Reaction Status Date / Time adhesive tape Allergy Verified 09/13/19 08:04 Consultations 12/18/19 21:30 ED Decision to Admit Stat 12/20/19 08:11 Consult Gastroenterology Routine Consult Orthopedic Surgery Routine Ordered Studies 12/18/19 20:04 CT head/brain wo con Stat 12/18/19 23:45 CT abd pelvis oral con only Routine CT chest wo con Routine Hospital Course (1) Pancolitis: concern for c diff infection. started empirically on PO vanco on 12/20/2019. unfortunately we have yet been unable to verify if she indeed has c diff or something else. await formal c.diff testing and stool cx. symptomatic care in meantime. GI following. (2) Hyponatremia: 2nd to volume depletion and previous HCTZ use. improving nicely with IV fluids. bmp in am. HCTZ on hold. (3) Hypomagnesemia: replaced, resolved (4) Hypokalemia: nearly normal at 3.4 today cont supplementation HCTZ being held (5) Vaginal cancer: s/p recent treatment/surgery at [facility] for such will need f/u post-d/c she apparently has a PET-CT scheduled for later this week [place] [facility] [place] (6) H/O deep venous thrombosis: on lifelong anticoagulation w/ coumadin daily INR cont coumadin (7) Hypercoagulable state: cause of previous VTE on lifelong coumadin (8) Hypothyroid: TSH at admission wnl cont synthroid w/o changes Discharge Plan Discharge Items Patient Disposition: Home - Self-Care Reason For Visit: fall, abdominal pain Discharge Diagnosis: abdominal pain due to c. diff infection of the colon- improving Activity: As commented below Activity Comment: gradually increase activities as tolerated over the next week Non-emergency contact: Primary Care Provider Call non-emergency contact if: you have any medication questions, your symptoms worsen, your pain is not controlled, your pain is worsening, your pain is unusual for you, your pain is concerning for you and you have a fever Follow-up/Referrals: Rudy Cohn [Primary Care Provider] - (see Dr Cohn within 5-7 days) Diet: Heart Healthy and Low Fiber Ambulatory Orders: Basic Metabolic Panel (Routine) Timeframe: 20191226 Location: Determined by Patient Ordered By: Ruslan Cheney Magnesium (Routine) Timeframe: 20191226 Location: Determined by Patient Ordered By: Ruslan Cheney Prothrombin Time INR (Routine) Timeframe: 20191226 Location: Determined by Patient Ordered By: Ruslan Cheney Addtl Attending Provider Instructions: You were admitted for weakness, abdominal pain, a fall, and dehydration. The abdominal pain was ultimately found to be caused by an infection in your colon called "c diff." You were started on vancomycin antibiotic for this with improvement while here. Your low potassium, low sodium, and low magnesium were all corrected with IV fluids, etc. Recommendations - 1. vancomycin 125mg 4 times a day for 12 more days; start this upon return home. 2. lactinex 3 tablets 3 times a day for 10 days; start this today. 3. STOP your HCTZ (hydrochlorothiazide). 4. please TAKE potassium chloride tablet 20meq TWICE A DAY for 3 days, then resume ONCE A DAY thereafter. 5. have Dr Cohn repeat your electrolytes THIS WEEK (BMP and magnesium). 6. your INR was 2.1 on 12/21/2019. Please have your INR repeated in 3-4 days to make sure it is in range. 7. low fiber diet for 7-10 days. Thus, avoid high-fiber cereal, excessive fruits/veggies, beans, etc. Avoid alcohol. 8. c diff prevention to others - * it is a contagious illness * please use a separate bathroom than your for the next 2 weeks if possible * avoid visitors to your home for about 2 weeks, if possible * hand sanitizers/alcohol based Purell does NOT kill c.diff * soap with warm water for minimum 30 seconds to your hands will kill the c.diff * when washing toilets, door handles, faucets, counters etc use BLEACH wipes or straight-up bleach to clean; BLEACH KILLS C.DIFF * when washing linens/towels wash them on hot-water cycle; use BLEACH if possible with your detergent 9. follow-up with Dr Cohn this week 10. follow-up with [place] for your PET scan this week as scheduled Return to [facility] if - * you have worsening diarrhea despite taking the vancomycin * you have worsening abdominal pain * you are concerned about dehydration * you have fevers over 100.5 degrees * any other concerns Pending Studies at Discharge: Yes Studies:: stool culture Stand-Alone Forms: [facility], Smoking Cessation Medications and DC Order Prescriptions: New vancomycin 125 mg capsule 125 mg PO Q6H 12 Days Qty: 48 RF: 0 Lactinex 1 million cell tablet,chewable 3 tab PO TID 10 Days Qty: 90 RF: 0 Continued aspirin [Adult Aspirin Regimen] 81 mg tablet,delayed release (DR/EC) 81 mg PO DAILY RF: 0 losartan 50 mg tablet 50 mg PO DAILY RF: 0 warfarin 5 mg tablet See Rx Instructions .ROUTE .COMPLEX RF: 0 levothyroxine 125 mcg capsule 125 mcg PO DAILY RF: 0 folic acid 1 mg tablet 1 mg PO DAILY RF: 0 furosemide [Lasix] 40 mg tablet 40 mg PO DAILY RF: 0 amlodipine [Norvasc] 10 mg tablet 10 mg PO DAILY RF: 0 potassium chloride 20 mEq tablet,ER particles/crystals 20 meq PO DAILY RF: 0 multivitamin Tablet 1 tab PO DAILY RF: 0 thiamine HCl (vitamin B1) [Vitamin B-1] 100 mg Tablet 100 mg PO DAILY RF: 0 Discontinued hydrochlorothiazide 25 mg tablet 25 mg PO DAILY RF: 0 Discharge Orders: Discharge Order (Routine); Ordered 12/22/19 Ordered By: Ruslan Diaz/Other Patient Handouts: Clostridium Difficile Infec Admission Data Admit Date/Time: 12/18/19 22:39 Attending Provider: Ruslan Cheney Admit Provider: Frank Villanueva Primary Care Provider: Rudy Cohn Other Providers: Frank Villanueva ; Wallace Rodrigues ; Digna Ruvalcaba ; Shea Alexandre ; Calin Bernardo ; Zhen Luna ; Chucho Harrington ; Chad Dalal ; Holli Akers ; Jose De Jesus Hardin ; Nicole Chavez ; Jerson Dominguez ; Latrell Cristina ; Hans Rai ; Latrell Zambrano ; Alex Bush. ; Hans Dodge ; Jeison Miller ; Lauro Riggs ; Farhad Adame ; Golden Thompson ; Lorenzo Red ; Nicole Mota ; Cristian Murguia ; Damián Segura ; Aaron Boswell Coding Diagnoses Pancolitis K51.00 Hyponatremia E87.1 Hypomagnesemia E83.42 Hypokalemia E87.6 Vaginal cancer C52 H/O deep venous thrombosis Z86.718 Hypercoagulable state D68.59 Hypothyroid E03.9
[2019-12-22] MEDS ORDERED: POTASSIUM CHLORIDE 20 MEQ TABCR PO SCH (21:00)
[2019-12-25] MEDS ORDERED: WARFARIN SOD 4 MG TAB PO SCH (16:00)
[2019-12-25] MEDS ORDERED: WARFARIN SOD 3 MG TAB PO SCH (16:00)
== END 2019-12-22 14:23 | disposition home or self-care (01) | DRG 372 ==
LOC: ED 19:46 → SUATTDRO 22:39 → 2N 22:39

== ENCOUNTER 2020-02-15 18:56 | Inpatient (IN) ==
[2020-02-15] MEDS ORDERED: SODIUM CHLORIDE 0.9% 1000ML 1,000 ML IV ONE (19:08)
[2020-02-15] MEDS ORDERED: POTASSIUM CHLORIDE 20 MEQ TABCR PO STA (19:55)
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
[2020-02-15 19:56] LABS: Basophils # (auto) 0.01 K/uL (0-0.2); Basophils % (auto) 0.1 %; Eosinophils # (auto) 0.07 K/uL (0-0.5); Eosinophils % (auto) 0.8 %; Hematocrit (blood only) 32.1 % (37-47); Hemoglobin 10.4 g/dL (12.0-16.0); Immature Granulocytes # (auto) 0.05 K/uL (0.00-0.02); Immature Granulocytes % (auto) 0.5 %; Lymphocytes # (auto) 0.19 K/uL (1.2-3.4); Mean Corpuscular Hemoglobin 26.5 pg (25-34); Mean Corpuscular Hgb Conc 32.4 g/dL (32-36); Mean Corpuscular Volume 81.7 fL (80-100); Mean Platelet Volume 8.2 fL (7.4-10.4); Monocytes # (auto) 0.43 K/uL (0.11-0.59); Monocytes % (auto) 4.6 %; Neutrophils # (auto) 8.53 K/uL (1.4-6.5); Platelet Count 178 K/uL (130-400); RDW Coefficient of Variation 17.9 % (11.5-14.5); RDW Standard Deviation 53.3 fL (36.4-46.3); Red Blood Count 3.93 M/uL (4.2-5.4); White Blood Count 9.28 K/uL (4.8-10.8)
--- NOTE | 2020-02-15 19:58 | XRay Report ---
XR chest 1V portable HISTORY: 64 years-old Female SEPSIS acute sepsis with weakness COMPARISON: Chest radiograph 12/18/2019 TECHNIQUE: Portable AP view of the chest FINDINGS: Cardiac silhouette is enlarged, unchanged. Calcified plaque of the thoracic aortic arch. There is unc hanged mild blunting of the costophrenic angles with similar-appearing bibasilar opacities. No pneumo thorax or large pleural effusion. Pulmonary vascular congestion. Degenerative changes of the shoulder s and spine. IMPRESSION: 1. Cardiomegaly with pulmonary vascular congestion. 2. Mild bibasilar opacities suggest atelectasis and appear similar to comparison. Pneumonitis could a ppear similarly. ACT 112: Negative or not required by law. The above report was generated using voice recognition software. It may contain grammatical, syntax o r spelling errors. Electronically signed by: Madi Feliciano M.D. 02/15/2020 7:57 PM
[2020-02-15 20:09] LABS: INR 1.5 (0.9-1.1); Partial Thromboplastin Ratio 0.9; Partial Thromboplastin Time 25.9 Seconds (21.0-31.0); Prothrombin Time 15.1 Seconds (9.0-12.0)
[2020-02-15 20:10] LABS: iSTAT Creatinine 0.7 mg/dl (0.6-1.3); iSTAT Hemoglobin 11.2 g/dl (12.0-16.0); iSTAT Ionized Calcium 1.18 mmol/l (1.12-1.32); iSTAT Potassium 3.5 mmol/L (3.3-5.0)
[2020-02-15 20:11] LABS: Appearance Urine Clear (Clear); Bacteria Urine Automated 4+ (Negative); Bilirubin Urine Negative (Negative); Blood Urine 2+ (Negative); Color Urine Yellow; Glucose Urine UA Negative (Negative); Ketones Urine Negative (Negative); Leukocyte Esterase Urine 2+ (Negative); Nitrite Urine Positive (Negative); Protein Urine Negative (Negative); RBC Urine Automated >30 /hpf (0-4); Specific Gravity Urine 1.012 (1.000-1.030); Urobilinogen Urine Negative (Negative); WBC Urine Automated >30 /hpf (0-5); pH Urine 7.5 (4.5-7.5)
[2020-02-15] MEDS ORDERED: ALBUTEROL HFA 8 GM INHALER INH ONE (20:13)
[2020-02-15] MEDS ORDERED: LEVOFLOXACIN/D5W 750 MG/150 ML BAG IV STA (20:13)
[2020-02-15] MEDS ORDERED: CEFEPIME 2,000 MG/20 ML VIAL IV STA (20:13)
[2020-02-15 20:24] LABS: Alanine Aminotransferase 16 U/L (12-78); Albumin Level 3.2 gm/dl (3.4-5.0); Aspartate Aminotransferase 21 U/L (15-37); BUN Creatinine Ratio 10.2 (10-20); Blood Urea Nitrogen 9 mg/dl (7-18); Carbon Dioxide 28 mmol/L (21-32); Chloride 95 mmol/L (98-107); Creatinine Clr Calc Pharmacy 70.5 ml/min; Est GFR (African American) 77.3; Est GFR (Non-African American) 66.7; Glucose 102 mg/dl (70-99); Magnesium 1.6 mg/dl (1.8-2.4); Potassium 3.4 mmol/L (3.5-5.1); Sodium 129 mmol/L (136-145)
[2020-02-15 20:29] LABS: Albumin Globulin Ratio 0.6 (0.9-2); Alkaline Phosphatase 98 U/L (45-117); Bilirubin,Total 0.4 mg/dl (0.2-1); Creatine Kinase 46 U/L (26-192); Creatine Kinase MB < 1.0 ng/ml (0.5-3.6); Total Protein 8.2 gm/dl (6.4-8.2); Troponin I < 0.015 ng/ml (0-0.045)
[2020-02-15 20:40] LABS: Influenza A virus by PCR Neg for Influ A (Neg); Influenza B virus by PCR Neg for Influ B (Neg)
[2020-02-15 20:49] LABS: NT Pro B Type Natriuretic Pept 148 pg/ml (0-900)
[2020-02-15] MEDS ORDERED: OPTIRAY 320 125ml IV PRN (20:50)
--- NOTE | 2020-02-15 21:14 | CT Scan Report ---
CT angio chest PE protocol CT DOSE: 371.10 mGy.cm HISTORY: 64 years-old Female with PE. 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 Coronal and sagittal MIPS were obtained from the axial data set and were submitted for review. All measurements were obtained according to NASCET criteria. A dose lowering technique w as utilized adhering to the principles of ALARA. COMPARISON: Chest radiograph of same day, chest, abdomen and pelvis CT 12/19/2019 FINDINGS: CTA: Moderate cardiomegaly. No pericardial effusion. Extensive coronary artery calcifications. Metastases plaque of the thoracic aorta without aneurysm or dissection. Patency of the imaged great vessels. Pul monary arterial tree is opacified to level of the segmental branches is trace no definite filling def ects to suggest pulmonary thromboembolic disease. Respiratory motion artifact limits evaluation of th e lung bases. CT CHEST: No thyroid nodule. Prominent paratracheal, AP window and subcarinal lymph nodes. Mildly enlarged righ t hilar lymph nodes measure up to 1.5 x 1.7 cm. There is no significant change from comparison. Promi nent periesophageal lymph nodes measure up to 8 mm in short axis. Prominent gastrohepatic lymph nodes are also present. No pneumothorax or pleural effusion. Patchy bibasilar consolidative and groundglass opacities are not ed along with linear areas of subsegmental atelectasis. There is progression of multilobar metastatic disease with innumerable scattered solid pulmonary nodules. Index 12 mm solid nodule of the right lo wer lobe on image 116 series 4. 9 mm solid nodule of the right midlung on image 133 series 4. There a re a few cystic structures of the posterior basal segment right lower lobe redemonstrated measuring u p to 3.1 cm. Central airways appear patent. Hyperdense foci within the esophagus may reflect healed fragments. Progressive hepatic metastatic dis ease is noted with lesion in the left hepatic lobe measuring up to 4.0 cm in greatest dimension. On p rior study, no lesion was seen measuring over 2 cm. Soft tissues are unremarkable. Degenerative ocampo es of the shoulders and spine. No definite suspicious lytic or blastic osseous lesions identified. IMPRESSION: 1. Cardiomegaly without evidence of pulmonary thromboembolic disease. 2. Progressive pulmonary and hepatic metastatic disease. 3. There is linear bibasilar atelectasis with additional superimposed groundglass and consolidative o pacities suggestive of additional atelectasis versus pneumonitis. 4. Additional findings as above. ACT 112: Negative or not required by law. The above report was generated using voice recognition software. It may contain grammatical, syntax o r spelling errors. Electronically signed by: Madi Feliciano M.D. 02/15/2020 9:13 PM
[2020-02-15 22:22] LABS: Adenovirus PCR Not Detected (NotDetected); Bordetella parapertussis PCR Not Detected (NotDetected); Bordetella pertussis PCR Not Detected (NotDetected); Chlamydia pneumoniae PCR Not Detected (NotDetected); Coronavirus 229E PCR Not Detected (NotDetected); Coronavirus HKU1 PCR Not Detected (NotDetected); Coronavirus NL63 PCR Not Detected (NotDetected); Coronavirus OC43PCR Not Detected (NotDetected); Human Metapneumovirus PCR Not Detected (NotDetected); Influenza A PCR Not Detected (NotDetected); Influenza B PCR Not Detected (NotDetected); Mycoplasma pneumoniae PCR Not Detected (NotDetected); Parainfluenza Virus 1 PCR Not Detected (NotDetected); Parainfluenza Virus 2 PCR Not Detected (NotDetected); Parainfluenza Virus 3 PCR Not Detected (NotDetected); Parainfluenza Virus 4 PCR Not Detected (NotDetected); Respiratory Syncytial VirusPCR Not Detected (NotDetected); Rhinovirus/Enterovirus PCR Not Detected (NotDetected)
[2020-02-15 22:27] LABS: D Dimer 2660 ug/L FEU (0-500)
[2020-02-15] MEDS ORDERED: SODIUM CHLORIDE 0.9% 500 ML IV STA (23:05)
[2020-02-15] MEDS ORDERED: ALBUMIN 25% 50 ML IV STA (23:06)
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
[2020-02-16] MEDS ORDERED: ALUMINUM/MAGNESIUM SUSP 30 ML UDC PO PRN (01:54)
[2020-02-16] MEDS ORDERED: MAGNESIUM HYDROXIDE SUSP 30 ML UDC PO PRN (01:54)
[2020-02-16] MEDS ORDERED: ACETAMINOPHEN 325 MG TAB PO PRN (01:54)
[2020-02-16] MEDS ORDERED: ONDANSETRON INJ 2 MG/ML 2 ML VIAL IV PRN (01:54)
[2020-02-16] MEDS: NSS + 20MEQ KCL 20 MEQ/1,000 ML BAG IV SCH ×3 (02:20→21:36)
[2020-02-16] MEDS: LEVOTHYROXINE SODIUM 125 MCG TABLET PO SCH (05:42)
[2020-02-16] MEDS: VANCOMYCIN HCL 125 MG/2.5ML SOLN PO SCH ×3 (05:42→17:32)
[2020-02-16] MEDS: RASPBERRY SYRUP 5 ML UDP PO SCH ×3 (05:42→17:32)
[2020-02-16 06:19] LABS: Basophils # (auto) 0.01 K/uL (0-0.2); Basophils % (auto) 0.2 %; Eosinophils # (auto) 0.05 K/uL (0-0.5); Eosinophils % (auto) 0.8 %; Hematocrit (blood only) 27.3 % (37-47); Hemoglobin 8.8 g/dL (12.0-16.0); Immature Granulocytes # (auto) 0.01 K/uL (0.00-0.02); Immature Granulocytes % (auto) 0.2 %; Lymphocytes # (auto) 0.82 K/uL (1.2-3.4); Lymphocytes % (auto) 13.6 %; Mean Corpuscular Hemoglobin 26.7 pg (25-34); Mean Corpuscular Hgb Conc 32.2 g/dL (32-36); Mean Platelet Volume 8.1 fL (7.4-10.4); Monocytes # (auto) 0.87 K/uL (0.11-0.59); Monocytes % (auto) 14.4 %; Neutrophils # (auto) 4.27 K/uL (1.4-6.5); Neutrophils % (auto) 70.8 %; Platelet Count 127 K/uL (130-400); RDW Coefficient of Variation 18.4 % (11.5-14.5); RDW Standard Deviation 55.3 fL (36.4-46.3); Red Blood Count 3.29 M/uL (4.2-5.4); White Blood Count 6.03 K/uL (4.8-10.8)
[2020-02-16 06:36] LABS: INR 1.6 (0.9-1.1); Partial Thromboplastin Ratio 1.1; Partial Thromboplastin Time 30.7 Seconds (21.0-31.0); Prothrombin Time 16.2 Seconds (9.0-12.0)
[2020-02-16 06:40] LABS: Albumin Level 2.6 gm/dl (3.4-5.0); BUN Creatinine Ratio 14.6 (10-20); Calcium 8.7 mg/dl (8.5-10.1); Creatinine Clr Calc Pharmacy 104.7 ml/min; Est GFR (Non-African American) 95.8; Magnesium 1.8 mg/dl (1.8-2.4); Potassium 3.6 mmol/L (3.5-5.1)
[2020-02-16 06:49] LABS: Albumin Globulin Ratio 0.6 (0.9-2); Bilirubin,Total 0.5 mg/dl (0.2-1); Globulin 4.2 gm/dl (2.5-4.0); Total Protein 6.8 gm/dl (6.4-8.2)
[2020-02-16] MEDS ORDERED: ALBUT/IPRATROP 3MG/0.5MG NEB 3 ML VIAL NEB SCH (07:00)
[2020-02-16] MEDS: POTASSIUM CHLORIDE 20 MEQ TABCR PO SCH (07:50)
[2020-02-16] MEDS: THIAMINE HCL 100 MG TAB PO SCH (07:50)
[2020-02-16] MEDS: MULTIVITAMIN TAB PO SCH (07:50)
[2020-02-16] MEDS: FOLIC ACID 1 MG TAB PO SCH (07:50)
[2020-02-16] MEDS: ASPIRIN 81 MG ECTAB PO SCH (07:50)
[2020-02-16] MEDS ORDERED: ALBUT/IPRATROP 3MG/0.5MG NEB 3 ML VIAL NEB PRN (07:59)
[2020-02-16] MEDS: CEFEPIME 2,000 MG in SYRINGE 7.5 ML IV SCH ×2 (07:59→20:00)
[2020-02-16] MEDS ORDERED: AMLODIPINE BESYLATE 5 MG TAB PO SCH (09:00)
--- NOTE | 2020-02-16 09:30 | Hospitalist Progress Note ---
Date of Service February 16, 2020 Assessment & Plan (1) Pneumonia: Continue cefepime and levofloxacin IV begun in ED. 1 out of 2 bottles blood cultures growing gram-negative bacilli along with urine culture. We will continue to wait for final results, but also repeat blood cultures today. If patient can produce sample, will ask for sputum culture as well. CT of the chest results noted, read as progressive pulmonary hepatic metastatic disease. Will need to follow-up as an outpatient once acute issues have resolved. (2) H/O deep venous thrombosis: INR 1.6, mildly subtherapeutic. Give warfarin 10 mg p.o. tonight, continue to follow. May need increased dose if not therapeutic tomorrow (3) C. difficile colitis: Diagnosed with C. difficile colitis during admission in December. Placed on vancomycin 125 mg p.o. 4 times daily while on IV antibiotics for lung and urinary infections now. (4) HTN (hypertension): Hold amlodipine, aspirin, HCTZ and losartan due to low blood pressure in the ED (5) UTI (urinary tract infection): Unclear if bacteremia is from urine versus pneumonia. Patient is on cefepime and Levaquin, will continue both these until cultures can be resulted. 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 Presently undergoing radiation therapy in association with [facility]. (7) Hypothyroid: Continue levothyroxine 125 mcg p.o. daily Admission and Anticipated Discharge Date Admission Date: February 16, 2020 Anticipated date of discharge: 02/18/20 Subjective Patient seen and examined. Patient tells me she generally feels better, I denies any cough but I did witness some loose cough prior to leaving the room. She has no abdominal pain. She denies any chest pain, palpitations, diaphoresis, fever or chills. Documented to be only 86% on room air, was in the low 90s on 2 L nasal cannula. Physical Exam Constitutional: cooperative; no acute distress Neck: trachea midline, no thyromegaly Respiratory: normal respiratory effort Auscultation: + diminished lung sounds and + rales (Minimally at bases); no crackles, no rhonchi and no wheezes Cardiovascular: Rate/Rhythm: regular rate and regular rhythm Heart Sounds: normal S1 and normal S2 Gastrointestinal (Abdomen): Inspection/Auscultation: abdomen normal to inspection Percussion/Palpation: abdomen soft (Obese); abdomen nontender, no guarding, abdomen not rigid and no hepatosplenomegaly Skin: no rashes, warm and dry Results & Data Results & Data ([facility]) Vital Signs (Past 12 Hours) Vital Signs Temp Pulse Pulse Resp BP BP BP 02/16/20 08:11 72 16 02/16/20 07:07 67 02/16/20 07:00 37.3 C 69 18 93/57 L 02/16/20 01:49 82 02/16/20 01:45 37.1 C 81 71 18 110/67 02/16/20 01:31 77 22 02/16/20 01:30 77 27 H 101/59 L 02/16/20 01:16 76 19 02/16/20 01:15 76 17 93/56 L 02/16/20 01:01 68 21 02/16/20 01:00 69 22 95/56 L 02/16/20 00:46 79 24 02/16/20 00:45 84 24 95/55 L 02/16/20 00:33 79 22 02/16/20 00:32 81 20 89/53 L 02/16/20 00:31 77 23 02/16/20 00:30 80 22 87/53 L 02/16/20 00:23 37.2 C 02/16/20 00:16 83 22 02/16/20 00:15 81 23 92/55 L 02/16/20 00:07 83 21 95/53 L 02/16/20 00:01 84 22 02/16/20 00:00 83 23 87/53 L 02/15/20 23:46 98 H 24 02/15/20 23:45 86 24 97/55 L 02/15/20 23:36 114 H 26 H 02/15/20 23:35 95 H 28 H 101/53 L 02/15/20 23:34 98 H 16 02/15/20 23:16 104 H 23 02/15/20 23:15 92 H 25 H 88/50 L 02/15/20 23:03 97 H 25 H 91/49 L 02/15/20 23:01 98 H 25 H 02/15/20 23:00 108 H 26 H 88/51 L 02/15/20 22:57 103 H 26 H 02/15/20 22:56 108 H 26 H 91/52 L 02/15/20 22:55 98 H 22 94/56 L 02/15/20 22:46 100 H 26 H 02/15/20 22:45 114 H 26 H 89/52 L 02/15/20 22:31 93 H 22 02/15/20 22:30 95 H 24 99/58 L 02/15/20 22:16 99 H 21 02/15/20 22:15 98 H 24 103/64 02/15/20 22:01 98 H 24 02/15/20 22:00 98 H 25 H 106/63 02/15/20 21:49 110 H 23 02/15/20 21:48 110 H 13 114/65 02/15/20 21:46 108 H 25 H 02/15/20 21:31 102 H 24 02/15/20 21:30 103 H 24 109/63 Pulse Ox 02/16/20 08:11 86 L 02/16/20 07:07 02/16/20 07:00 92 02/16/20 01:49 02/16/20 01:45 91 02/16/20 01:31 93 02/16/20 01:30 94 02/16/20 01:16 94 02/16/20 01:15 94 02/16/20 01:01 98 02/16/20 01:00 96 02/16/20 00:46 92 02/16/20 00:45 94 02/16/20 00:33 94 02/16/20 00:32 94 02/16/20 00:31 95 02/16/20 00:30 94 02/16/20 00:23 02/16/20 00:16 95 02/16/20 00:15 94 02/16/20 00:07 96 02/16/20 00:01 93 02/16/20 00:00 93 02/15/20 23:46 96 02/15/20 23:45 93 02/15/20 23:36 89 L 02/15/20 23:35 85 L 02/15/20 23:34 86 L 02/15/20 23:16 92 02/15/20 23:15 92 02/15/20 23:03 93 02/15/20 23:01 94 02/15/20 23:00 93 02/15/20 22:57 93 02/15/20 22:56 95 02/15/20 22:55 95 02/15/20 22:46 93 02/15/20 22:45 93 02/15/20 22:31 95 02/15/20 22:30 95 02/15/20 22:16 95 02/15/20 22:15 94 02/15/20 22:01 94 02/15/20 22:00 94 02/15/20 21:49 95 02/15/20 21:48 93 02/15/20 21:46 92 02/15/20 21:31 95 02/15/20 21:[address] angio chest PE protocol CT DOSE: 371.10 mGy.cm HISTORY: 64 years-old Female with PE. 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 Coronal and sagittal MIPS were obtained from the axial data set and were submitted for review. All measurements were obtained according to NASCET criteria. A dose lowering technique was utilized adhering to the principles of ALARA. COMPARISON: Chest radiograph of same day, chest, abdomen and pelvis CT 12/19/2019 FINDINGS: CTA: Moderate cardiomegaly. No pericardial effusion. Extensive coronary artery calcifications. Metastases plaque of the thoracic aorta without aneurysm or dissection. Patency of the imaged great vessels. Pulmonary arterial tree is o pacified to level of the segmental branches is trace no definite filling defects to suggest pulmonary thromboembolic disease. Respiratory motion artifact limits evaluation of the lung bases. CT CHEST: No thyroid nodule. Prominent paratracheal, AP window and subcarinal lymph nodes. Mildly enlarged right hilar lymph nodes measure up to 1.5 x 1.7 cm. There is no significant change from comparison. Prominent periesophageal lymph nodes measure up to 8 mm in short axis. Prominent gastrohepatic lymph nodes are also present. No pneumothorax or pleural effusion. Patchy bibasilar consolidative and g roundglass opacities are noted along with linear areas of subsegmental atelectasis. There is progression of multilobar metastatic disease with innumerable scattered solid pulmonary nodules. Index 12 mm solid nodule of the right lower lobe on image 116 series 4. 9 mm solid nodule of the right midlung on image 133 series 4. There are a few cystic structures of the posterior basal segment right lower lobe redemonstrated measuring up to 3.1 cm. Central airways appear patent. Hyperdense foci within the esophagus may reflect healed fragments. Progressive hepatic metastatic disease is noted with lesion in the left hepatic lobe measuring up to 4.0 cm in greatest dimension. On prior study, no lesion was seen measuring over 2 cm. Soft tissues are unremarkable. Degenerative changes of the shoulders and spine. No definite suspicious lytic or blastic osseous lesions identified. IMPRESSION: 1. Cardiomegaly without evidence of pulmonary thromboembolic disease. 2. Progressive pulmonary and hepatic metastatic disease. 3. There is linear bibasilar atelectasis with additional superimposed groundglass and consolidative opacities suggestive of additional atelectasis versus pneumonitis. 4. Additional findings as above. PG Care Time/CCT Total # of Minutes Spent Total Time Spent with Patient: Total time spent is greater than 50% in coordination of care (as documented) at patient's floor/unit and/or counseling patient: Coding Level of Care Code 45333 Subseq Hosp Care Lvl 2 Diagnoses Pneumonia J18.9 H/O deep venous thrombosis Z86.718 C. difficile colitis A04.72 HTN (hypertension) I10 UTI (urinary tract infection) N39.0 Melanoma C43.9 Hypothyroid E03.9
--- NOTE | 2020-02-16 10:04 | Electrocardiogram Report ---
Test Reason : Blood Pressure : / mmHG Vent. Rate : 104 BPM Atrial Rate : 104 BPM P-R Int : 162 ms QRS Dur : 096 ms QT Int : 334 ms P-R-T Axes : 056 -32 039 degrees QTc Int : 439 ms Poor data quality, interpretation may be adversely affected Sinus tachycardia Left axis deviation Poor R wave progression, consider anterior TN vs. lead placement vs. LVH Abnormal ECG When compared with ECG of 18-DEC-2019 20:00, Nonspecific T wave abnormality no longer evident in Lateral leads Confirmed by Giovanni Mayorga ([id number]) on 02/16/2020 10:03:47 AM Referred By: REFERRED SELF Confirmed By:Giovanni Mayorga
--- NOTE | 2020-02-16 10:18 | Electrocardiogram Report ---
Test Reason : Blood Pressure : / mmHG Vent. Rate : 069 BPM Atrial Rate : 069 BPM P-R Int : 212 ms QRS Dur : 092 ms QT Int : 204 ms P-R-T Axes : 000 -25 180 degrees QTc Int : 218 ms Poor data quality, interpretation may be adversely affected Sinus rhythm with 1st degree A-V block Poor R wave progression, consider anterior PA vs. lead placement vs. LVH Abnormal ECG When compared with ECG of 15-FEB-2020 19:18, Vent. rate has decreased BY 35 BPM Otherwise no significant change Confirmed by Giovanni Mayorga ([id number]) on 02/16/2020 10:18:17 AM Referred By: REFERRED SELF Confirmed By:Giovanni Mayorga
[2020-02-16] MEDS ORDERED: LEVOFLOXACIN/D5W 500 MG/100 ML BAG IV SCH (21:00)
[2020-02-17] MEDS: RASPBERRY SYRUP 5 ML UDP PO SCH ×3 (00:36→11:57)
[2020-02-17] MEDS: VANCOMYCIN HCL 125 MG/2.5ML SOLN PO SCH ×3 (00:36→11:57)
[2020-02-17 05:50] LABS: Basophils # (auto) 0.02 K/uL (0-0.2); Basophils % (auto) 0.4 %; Eosinophils # (auto) 0.08 K/uL (0-0.5); Eosinophils % (auto) 1.6 %; Hematocrit (blood only) 28.4 % (37-47); Hemoglobin 9.1 g/dL (12.0-16.0); Immature Granulocytes # (auto) 0.01 K/uL (0.00-0.02); Immature Granulocytes % (auto) 0.2 %; Lymphocytes # (auto) 0.72 K/uL (1.2-3.4); Lymphocytes % (auto) 14.5 %; Mean Corpuscular Hemoglobin 26.8 pg (25-34); Mean Corpuscular Volume 83.8 fL (80-100); Mean Platelet Volume 8.4 fL (7.4-10.4); Monocytes # (auto) 0.42 K/uL (0.11-0.59); Monocytes % (auto) 8.5 %; Neutrophils # (auto) 3.71 K/uL (1.4-6.5); Neutrophils % (auto) 74.8 %; Platelet Count 142 K/uL (130-400); RDW Coefficient of Variation 18.6 % (11.5-14.5); RDW Standard Deviation 56.8 fL (36.4-46.3); Red Blood Count 3.39 M/uL (4.2-5.4); White Blood Count 4.96 K/uL (4.8-10.8)
[2020-02-17 06:08] LABS: INR 1.2 (0.9-1.1); Prothrombin Time 12.4 Seconds (9.0-12.0)
[2020-02-17 06:22] LABS: Albumin Globulin Ratio 0.6 (0.9-2); Albumin Level 2.7 gm/dl (3.4-5.0); BUN Creatinine Ratio 18.6 (10-20); Bilirubin,Total 0.4 mg/dl (0.2-1); Calcium 8.6 mg/dl (8.5-10.1); Creatinine Clr Calc Pharmacy 129.1 ml/min; Est GFR (African American) 118.5; Est GFR (Non-African American) 102.3; Globulin 4.5 gm/dl (2.5-4.0); Magnesium 1.8 mg/dl (1.8-2.4); Potassium 4.4 mmol/L (3.5-5.1); Total Protein 7.2 gm/dl (6.4-8.2)
[2020-02-17] MEDS: LEVOTHYROXINE SODIUM 125 MCG TABLET PO SCH (06:36)
[2020-02-17] MEDS: NSS + 20MEQ KCL 20 MEQ/1,000 ML BAG IV SCH (07:34)
[2020-02-17] MEDS: CEFEPIME 2,000 MG in SYRINGE 7.5 ML IV SCH (07:34)
[2020-02-17] MEDS: FOLIC ACID 1 MG TAB PO SCH (07:37)
[2020-02-17] MEDS: MULTIVITAMIN TAB PO SCH (07:37)
[2020-02-17] MEDS: POTASSIUM CHLORIDE 20 MEQ TABCR PO SCH (07:37)
[2020-02-17] MEDS: ASPIRIN 81 MG ECTAB PO SCH (07:37)
[2020-02-17] MEDS: THIAMINE HCL 100 MG TAB PO SCH (07:38)
--- NOTE | 2020-02-17 12:45 | Discharge Summary ---
Date of Service February 17, 2020 Admission HPI Per Admitting Provider The patient is a 64-year-old female with a past medical history including uterine cancer being followed by [facility] and currently undergoing radiation therapy, hypertension, hypothyroidism, hypokalemia, pneumonia on 12/18/2019, history of DVT on chronic warfarin, history of hyponatremia, hypomagnesemia and hypokalemia. She presents to the emergency department with above complaints. While in the emergency department, she was found to be hypoxic, febrile, and to have an abnormal chest x-ray. She denies any recent travels or sick exposures, other than previous hospitalization as noted. Her d-dimer was elevated at 2660, and LDH was elevated 272. She did undergo Cortrium respiratory assay, and COVID-19 NL 63 PCR testing, which were negative. She was has also been recently diagnosed with C. difficile colitis during her last admission, without current complaints. Admission Exam Per Admitting Provider The patient is awake, alert and oriented 3, normocephalic and atraumatic, lying in bed and in no acute distress. HEENT--PERRL, EOMI, mucous membranes and oropharynx dry. Neck--supple. No JVD. No bruits. Thyroid normal, trachea midline, no adenopathy. Heart--normal S1 and S2. No murmurs, rubs or gallops. Lungs-crackles at the bases bilaterally. No respiratory distress, no accessory muscle use. Abdomen--normal bowel sounds and soft. Nontender. Nondistended. Extremities--no cyanosis or clubbing. No edema. Dermatologic--normal skin turgor, normal color, no abnormal lymph nodes, no rash. Neurologic--cranial nerves II through XII grossly intact. Rheumatologic--normal range of motion. Psychiatric--normal affect. Principal Diagnosis 1. Sepsis with bacteremia, appears source is urinary tract infection from E. coli 2. Possible pneumonia, ruled out on 4 on admission 3. C. difficile colitis 4. Hypertension by history 5. Vaginal melanoma, currently getting XRT 6. Hypothyroidism Discharge Exam Constitutional cooperative; no acute distress Neck trachea midline, no thyromegaly Respiratory normal respiratory effort Auscultation: lungs clear to auscultation bilaterally; no crackles, no rales, no rhonchi and no wheezes Cardiovascular Rate/Rhythm: regular rate and regular rhythm Heart Sounds: normal S1 and normal S2 Gastrointestinal (Abdomen) Inspection/Auscultation: abdomen normal to inspection Percussion/Palpation: abdomen soft; abdomen nontender, no guarding, abdomen not rigid and no hepatosplenomegaly Skin no rashes, warm and dry Neurologic patellar DTR's 2+ bilat, sensation intact and PERRL, EOMI, accommodation nl, no face palsy, no dysarthria Discharge Data Allergies Allergy/AdvReac Type Severity Reaction Status Date / Time adhesive tape Allergy Intermediate REDDENED, Verified 02/15/20 19:55 IRRITATED SKIN Consultations 02/15/20 20:34 ED Decision to Admit Stat 02/16/20 01:54 Consult Case Management - Discharge Planning Routine Ordered Studies 02/15/20 20:33 CT angio chest PE protocol Stat CT angio chest PE protocol CT DOSE: 371.10 mGy.cm HISTORY: 64 years-old Female with PE. 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 Coronal and sagittal MIPS were obtained from the axial data set and were submitted for review. All measurements were obtained according to NASCET criteria. A dose lowering technique was utilized adhering to the principles of ALARA. COMPARISON: Chest radiograph of same day, chest, abdomen and pelvis CT 12/19/2019 FINDINGS: CTA: Moderate cardiomegaly. No pericardial effusion. Extensive coronary artery calcifications. Metastases plaque of the thoracic aorta without aneurysm or dissection. Patency of the imaged great vessels. Pulmonary arterial tree is opacified to level of the segmental branches is trace no definite filling defects to suggest pulmonary thromboembolic disease. Respiratory motion artifact limits evaluation of the lung bases. CT CHEST: No thyroid nodule. Prominent paratracheal, AP window and subcarinal lymph nodes. Mildly enlarged right hilar lymph nodes measure up to 1.5 x 1.7 cm. There is no significant change from comparison. Prominent periesophageal lymph nodes measure up to 8 mm in short axis. Prominent gastrohepatic lymph nodes are also present. No pneumothorax or pleural effusion. Patchy bibasilar consolidative and groundglass opacities are noted along with linear areas of subsegmental atelectasis. There is progression of multilobar metastatic disease with innumerable scattered solid pulmonary nodules. Index 12 mm solid nodule of the right lower lobe on image 116 series 4. 9 mm solid nodule of the right midlung on image 133 series 4. There are a few cystic structures of the posterior basal segment right lower lobe redemonstrated measuring up to 3.1 cm. Central airways appear patent. Hyperdense foci within the esophagus may reflect healed fragments. Progressive hepatic metastatic disease is noted with lesion in the left hepatic lobe measuring up to 4.0 cm in greatest dimension. On prior study, no lesion was seen measuring over 2 cm. Soft tissues are unremarkable. Degenerative changes of the shoulders and spine. No definite suspicious lytic or blastic osseous lesions identified. IMPRESSION: 1. Cardiomegaly without evidence of pulmonary thromboembolic disease. 2. Progressive pulmonary and hepatic metastatic disease. 3. There is linear bibasilar atelectasis with additional superimposed groundglass and consolidative opacities suggestive of additional atelectasis versus pneumonitis. 4. Additional findings as above. Hospital Course (1) Pneumonia: Concern was for sepsis with with pneumonia source. Patient was started on cefepime and Levaquin on admission. Blood cultures were done, showed 1 out of 2 bottles had gram-negative bacilli. Urine was also positive and showed E. coli with resistance is only to ampicillin and Augmentin. Patient seemed to improve fairly readily on antibiotic regimen. CT of the chest was as noted above, concern for possible groundglass appearance. This patient ultimately had a urinary tract infection, she will be discharged on Omnicef 300 mg twice daily to finish a 10-day course. IV antibiotics can be discontinued. Repeat blood cultures were negative for any bacteria suggesting the bacteremia cleared. (2) H/O deep venous thrombosis: Patient's INR is only 1.2 at time of discharge. Due to an error, Coumadin had not been administered last night. Plan to continue Coumadin as ordered, patient is on 10 mg of 5 mg alternating. She will need a recheck of her INR within 1 week with her primary care provider. (3) C. difficile colitis: Patient was found to have C. difficile with positive toxin and DNA testing. Patient was started on vancomycin 125 mg 4 times daily. She tells me she has very minimal diarrhea on the day discharge. She will need to continue this for full 10 days. I did describe what to look for and if the patient had worsening diarrhea or abdominal pain or fever that she should seek medical attention soon as possible. (4) HTN (hypertension): Patient will return to taking her outpatient antihypertensives on discharge. (5) UTI (urinary tract infection): Urinary tract infection as noted above, likely secondary E. coli. Plan to treat fully with Omnicef as noted above. 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 Presently undergoing radiation therapy in association with [facility]. (7) Hypothyroid: Continue levothyroxine 125 mcg p.o. daily Total Time Total Time Spent Total Time Spent (In Minutes): Time spent preparing discharge in excess of 30 minutes Discharge Plan Discharge Items Patient Disposition: Home - Self-Care Reason For Visit: PNEUMONIA, UTI, C DIFF Discharge Diagnosis: 1. Sepsis with bacteremia, appears source is urinary tract infection from E. coli 2. Possible pneumonia, ruled out on 4 on admission 3. C. difficile colitis 4. Hypertension by history 5. Vaginal melanoma, currently getting XRT 6. Hypothyroidism Condition on Discharge: Good Activity: Resume your previous activity Lifting: None Bathing: No limitations Sexual Activity: Wait until after follow-up appointment Non-emergency contact: Primary Care Provider and Oncologist Call non-emergency contact if: your pain is not controlled and your temperature is above 101 Follow-up/Referrals: Rudy Cohn [Primary Care Provider] - (have PT/INR (coumadin level) checked within 1 week) Diet: Heart Healthy Addtl Attending Provider Instructions: If you start to have fevers or your diarrhea worsens, seek medical attention by calling your PCP or presenting the emergency room. Continue radiation therapy as previously prescribed. Pending Studies at Discharge: No Stand-Alone Forms: My [facility] [employer], Smoking Cessation Medications and DC Order Prescriptions: New vancomycin 1,000 mg Recon Soln 125 mg PO Q6 Qty: 40 RF: 0 cefdinir 300 mg capsule 300 mg PO Q12H 10 Days Qty: 20 RF: 0 Continued hydrochlorothiazide 25 mg tablet 25 mg PO DAILY RF: 0 aspirin [Adult Aspirin Regimen] 81 mg tablet,delayed release (DR/EC) 81 mg PO DAILY RF: 0 losartan 50 mg tablet 50 mg PO DAILY RF: 0 levothyroxine 125 mcg capsule 125 mcg PO DAILY RF: 0 folic acid 1 mg tablet 1 mg PO DAILY RF: 0 warfarin 5 mg tablet See Rx Instructions .ROUTE .COMPLEX RF: 0 amlodipine [Norvasc] 10 mg tablet 10 mg PO DAILY RF: 0 potassium chloride 20 mEq tablet,ER particles/crystals 20 meq PO DAILY RF: 0 multivitamin Tablet 1 tab PO DAILY RF: 0 thiamine HCl (vitamin B1) [Vitamin B-1] 100 mg Tablet 100 mg PO DAILY RF: 0 Discharge Orders: Discharge Order (Routine); Ordered 02/17/20 Ordered By: Michael Craig Admission Data Admit Date/Time: 02/16/20 00:19 Attending Provider: Michael Craig Admit Provider: Dillon Fox Primary Care Provider: Rudy Cohn Other Providers: Dillon Fox Coding Level of Care Code D/C Day Management >30 mins Diagnoses Pneumonia J18.9 H/O deep venous thrombosis Z86.718 C. difficile colitis A04.72 HTN (hypertension) I10 UTI (urinary tract infection) N39.0 Melanoma C43.9 Hypothyroid E03.9
--- NOTE | 2020-02-17 13:34 | Electrocardiogram Report ---
Test Reason : Blood Pressure : / mmHG Vent. Rate : 076 BPM Atrial Rate : 076 BPM P-R Int : 192 ms QRS Dur : 096 ms QT Int : 364 ms P-R-T Axes : 010 -21 001 degrees QTc Int : 409 ms Normal sinus rhythm Normal ECG When compared with ECG of 16-FEB-2020 10:03, Nonspecific T wave abnormality no longer evident in Lateral leads QT has lengthened Confirmed by Noel Caruso ([id number]) on 02/17/2020 1:33:46 PM Referred By: REFERRED SELF Confirmed By:Noel Caruso
[2020-02-17] MEDS ORDERED: WARFARIN SOD 10 MG TAB PO SCH (16:00)
== END 2020-02-17 14:17 | disposition home or self-care (01) | DRG 872 ==
LOC: ED 18:56 → 2N 02-16 00:19 → SUATTDRO 02-16 00:19 → 2N 02-16 01:23

== ENCOUNTER 2020-06-10 15:13 | Observation (INO) ==
--- NOTE | 2020-06-10 15:48 | Emergency Department Note ---
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 number of the multiple bilateral pulmonary nodules Liver: There is significant interval increase in the size of the multiple hepatic masses. An index right hepatic lobe mass currently measures 12 cm as compared to 8.5 cm on the prior study. There is evidence for perihepatic fluid as well as probable subacute capsular hepatic fluid. There is a soft tissue nodule within the perihepatic space consistent with a metastatic deposit. Gallbladder: Cholelithiasis. Spleen: There is a stable 4 mm splenic hypodensity Pancreas: Unremarkable. Adrenal glands: Unremarkable. Kidneys: There are subcentimeter renal cysts. There is no hydronephrosis. Bowel: There are no transition zones indicate bowel obstruction. There is no evidence of acute diverticulitis. There are no findings to indicate acute appendicitis. Peritoneum: There is low volume ascites. There is no free intraperitoneal air. Vasculature: The abdominal aorta is normal in course and caliber. Adenopathy: There is mild retroperitoneal aortocaval lymphadenopathy. There is also evidence for iliac chain lymphadenopathy. Pelvic viscera: The bladder, and pelvic viscera are unremarkable. Skeletal structures: There is slight heterogeneity in the appearance of the bones without well-defined lytic lesions. IMPRESSION: 1. Significant interval progression in the intrahepatic metastatic disease. Interval development of a perihepatic peritoneal tumor implant 2. Interval development of low volume ascites 3. Retroperitoneal lymphadenopathy 4. Cholelithiasis 5. No evidence of bowel obstruction. No evidence of free air 6. Progressive pulmonary metastasis 7. Right lower lobe airspace opacities, atelectasis versus pneumonia. ACT 112: Negative or not required by law. Electronically signed by: Giovanny Suarez M.D. 06/10/2020 7:56 PM [facility] Narrative Patient was seen and evaluated as above in room C3. Review was performed of nursing notes and vital signs. I did review pertinent previous visits and patient history. After obtaining a thorough history and physical examination the above work up was performed. She presents to us today noting bilateral lower e xtremity edema and also abdominal distention. She is mildly tachycardic on presentation. She notes that the leg pain is minimal. She also notes not much output in regard to bowel movements. No emergent leukocytosis. There is anemia noted with hemoglobin near 10. Metabolic panel does reveal mild hypokalemia but no evidence of kidney or liver failure emergently. Troponin is negative. Urinalysis reveals what is suspected to be a contaminated sample noting the amount of epithelial cells. Patient's INR is slightly subtherapeutic at 1.9. The patient's bilateral lower extremity edema is not felt to be secondary to DVT noting examination and presentation, rather this is felt to be more of a central process creating peripheral edema. CTA of the chest as well as CT scan abdomen pelvis was performed. There was significant interval increase in the size and number of multiple bilateral pulmonary nodules consistent with metastatic disease in addition to in the abdomen there is significant interval progression in the intrahepatic metastatic disease as well as interval development of a p erihepatic peritoneal tumor implant. There is now development of low volume ascites. I suspect this is likely the cause of the patient's presentation at this time. There also was a right lower lobe airspace opacity indicating atelectasis versus pneumonia. No infectious symptoms on presentation. Given the patient's presentation it was felt reasonable to discuss this with the on- call oncologist, Dr. Morton. He will be consulted and will see the patient tomorrow morning and she will be admitted to medicine overnight which I believe is very reasonable. Patient in agreement with plan of care. Case also discussed with the attending physician. While in the department, I personally reevaluated the patient several times and each time the patient was found to be resting comfortably. The patient was educated upon management, educated upon todays findings/results. Case was also discussed with the hospitalist. Please refer to further documentation regarding her stay. Case was discussed with the attending physician. GCS: 15 In the evaluation and treatment of this patient the following differential diagnosis entertained: DVT, IVC clot burden, intra-abdominal mass, liver disease, infection, sepsis, PE, among others. Impression & Plan Metastatic disease, Abdominal distension, Abdominal ascites, Bilateral edema of lower extremity Discharge Plan Visit Data Chief Complaint: Swelling/Edema to Extremity Stated Complaint: LEG SWELLING ED Provider: Roman Marte ED Midlevel Provider: Jayjay Hsieh Discharge Problem: Metastatic disease, Abdominal distension, Abdominal ascites, Bilateral edema of lower extremity Patient Disposition: Admitted As Inpatient Condition: Fair Forms Stand Alone Forms: My [facility] Prescriptions Prescriptions: No Action hydrochlorothiazide 25 mg tablet 25 mg PO DAILY RF: 0 aspirin [Adult Aspirin Regimen] 81 mg tablet,delayed release (DR/EC) 81 mg PO DAILY RF: 0 losartan 50 mg tablet 50 mg PO DAILY RF: 0 levothyroxine 125 mcg capsule See Rx Instructions .ROUTE .COMPLEX RF: 0 folic acid 1 mg tablet 1 mg PO DAILY RF: 0 warfarin 5 mg Tablet See Rx Instructions .ROUTE .COMPLEX RF: 0 amlodipine [Norvasc] 10 mg tablet 10 mg PO DAILY RF: 0 potassium chloride 20 mEq tablet,ER particles/crystals 20 meq PO DAILY RF: 0 multivitamin Tablet 1 tab PO DAILY RF: 0 thiamine HCl (vitamin B1) [Vitamin B-1] 100 mg Tablet 100 mg PO DAILY RF: 0 Referrals Referrals: Rudy Cohn MD [Primary Care Provider] -
--- NOTE | 2020-06-10 15:48 | XRay Report ---
XR chest 1V portable HISTORY: 64 years-old Female Abdominal bloating, lower extremity edema COMPARISON: Chest CT 05/13/2020, chest radiograph 05/01/2020 TECHNIQUE: Portable AP view of the chest FINDINGS: Intrathoracic metastatic disease redemonstrated with numerous bilateral pulmonary nodules measuring u p to approximately 11 mm. Cardiac silhouette is mildly enlarged. Calcific plaque of the thoracic aort ic arch. No pneumothorax. There is unchanged mild blunting of the costophrenic angles. Chronic inters titial coarsening. Mild bibasilar opacities. Degenerative changes of the shoulders and spine. IMPRESSION: 1. Pulmonary metastatic disease redemonstrated. 2. Mild bibasilar opacities suggest atelectasis. Pneumonitis could appear similarly. 3. Cardiomegaly without overt pulmonary edema. ACT 112: Negative or not required by law. The above report was generated using voice recognition software. It may contain grammatical, syntax o r spelling errors. Electronically signed by: Madi Feliciano M.D. 06/10/2020 3:47 PM
[2020-06-10 17:12] LABS: Alanine Aminotransferase 17 U/L (12-78); Albumin Globulin Ratio 0.4 (0.9-2); Albumin Level 1.8 gm/dl (3.4-5.0); Alkaline Phosphatase 139 U/L (45-117); BUN Creatinine Ratio 20.2 (10-20); Bilirubin,Total 0.6 mg/dl (0.2-1); Blood Urea Nitrogen 11 mg/dl (7-18); Calcium 7.9 mg/dl (8.5-10.1); Carbon Dioxide 29 mmol/L (21-32); Chloride 102 mmol/L (98-107); Creatinine Clr Calc Pharmacy 123.4 ml/min; Globulin 4.6 gm/dl (2.5-4.0); Glucose 86 mg/dl (70-99); Lipase 385 U/L (73-393); NT Pro B Type Natriuretic Pept 87 pg/ml (0-900); Sodium 136 mmol/L (136-145); Total Protein 6.4 gm/dl (6.4-8.2); Troponin I < 0.015 ng/ml (0-0.045)
[2020-06-10 17:25] LABS: T4 Free Thyroxine 1.27 ng/dl (0.8-1.6)
[2020-06-10] MEDS ORDERED: OPTIRAY 320 125ml IV ONE (17:35)
[2020-06-10 17:40] LABS: Basophils # (auto) 0.01 K/uL (0-0.2); Basophils % (auto) 0.1 %; Eosinophils # (auto) 0.05 K/uL (0-0.5); Eosinophils % (auto) 0.6 %; Hematocrit (blood only) 32.9 % (37-47); Hemoglobin 10.8 g/dL (12.0-16.0); Immature Granulocytes # (auto) 0.02 K/uL (0.00-0.02); Immature Granulocytes % (auto) 0.3 %; Lymphocytes # (auto) 1.06 K/uL (1.2-3.4); Lymphocytes % (auto) 13.7 %; Mean Corpuscular Hemoglobin 28.3 pg (25-34); Mean Corpuscular Hgb Conc 32.8 g/dL (32-36); Mean Corpuscular Volume 86.1 fL (80-100); Mean Platelet Volume 8.3 fL (7.4-10.4); Monocytes # (auto) 0.81 K/uL (0.11-0.59); Monocytes % (auto) 10.5 %; Neutrophils # (auto) 5.76 K/uL (1.4-6.5); Neutrophils % (auto) 74.8 %; Platelet Count 285 K/uL (130-400); RDW Coefficient of Variation 17.5 % (11.5-14.5); RDW Standard Deviation 55.1 fL (36.4-46.3); Red Blood Count 3.82 M/uL (4.2-5.4); White Blood Count 7.71 K/uL (4.8-10.8)
[2020-06-10 17:50] LABS: Potassium 3.4 mmol/L (3.5-5.1)
[2020-06-10 17:52] LABS: INR 1.9 (0.9-1.1); Partial Thromboplastin Ratio 1.2; Prothrombin Time 19.7 Seconds (9.0-12.0)
[2020-06-10 17:55] LABS: Magnesium 1.9 mg/dl (1.8-2.4)
--- NOTE | 2020-06-10 19:50 | CT Scan Report ---
CT ANGIOGRAM OF THE CHEST CLINICAL HISTORY: tachycardia, malignancy, lower ext edema POSSIBLE PULMONARY EMBOLISM COMPARISON STUDY: 05/13/2020 TECHNIQUE: Following the IV administration of 116 mL of Optiray-320, CT angiogram of the thorax was p erformed from the thoracic inlet to the lung bases utilizing the pulmonary embolus protocol. Images a re reviewed in the axial, sagittal, and coronal planes. IV contrast was administered without complica tion. MIP imaging was performed. A dose lowering technique was utilized adhering to the principles o f ALARA. CT DOSE: 977.49 mGy.cm FINDINGS: There are multiple large hepatic masses. There is an enlarged 13 mm precarinal lymph node. There was no evidence of thoracic aortic dilatation. There were no pulmonary artery filling defects to indicate acute pulmonary embolism. No pleural effusions are visualized. There is right lower lobe atelectasis/consolidation. There is significant interval increase in the si ze and number of the multiple bilateral pulmonary nodules consistent with metastatic disease. An inde x left upper lobe pulmonary nodule measures 13 mm compared to 9 mm one month previously. This represe nts a nearly tripling in size and 1 month. IMPRESSION: 1. No evidence of acute pulmonary embolism 2. Significant interval increase in the size and number of multiple bilateral pulmonary nodules consi stent with metastatic disease. There is been near tripling in the size of the index left upper lobe p ulmonary nodule over 1 month interval. 3. Mediastinal adenopathy 4. Multiple hepatic masses ACT 112: Negative or not required by law. Electronically signed by: Giovanny Suarez M.D. 06/10/2020 7:48 PM
--- NOTE | 2020-06-10 19:57 | CT Scan Report ---
CT abd pelvis IV con only CLINICAL HISTORY: Abdominal bloating. Lower extremity edema COMPARISON STUDY: 05/13/2020 TECHNIQUE: The patient was scanned in a dynamic helical fashion during intravenous administration of 116 cc of Optiray 320 A dose lowering technique was utilized adhering to the principles of ALARA. CT DOSE: FINDINGS: Lower chest: There is right lower lobe atelectasis/consolidation. There is interval increase in size and number of the multiple bilateral pulmonary nodules Liver: There is significant interval increase in the size of the multiple hepatic masses. An index ri ght hepatic lobe mass currently measures 12 cm as compared to 8.5 cm on the prior study. There is pb dence for perihepatic fluid as well as probable subacute capsular hepatic fluid. There is a soft tiss ue nodule within the perihepatic space consistent with a metastatic deposit. Gallbladder: Cholelithiasis. Spleen: There is a stable 4 mm splenic hypodensity Pancreas: Unremarkable. Adrenal glands: Unremarkable. Kidneys: There are subcentimeter renal cysts. There is no hydronephrosis. Bowel: There are no transition zones indicate bowel obstruction. There is no evidence of acute divert iculitis. There are no findings to indicate acute appendicitis. Peritoneum: There is low volume ascites. There is no free intraperitoneal air. Vasculature: The abdominal aorta is normal in course and caliber. Adenopathy: There is mild retroperitoneal aortocaval lymphadenopathy. There is also evidence for joe c chain lymphadenopathy. Pelvic viscera: The bladder, and pelvic viscera are unremarkable. Skeletal structures: There is slight heterogeneity in the appearance of the bones without well-define d lytic lesions. IMPRESSION: 1. Significant interval progression in the intrahepatic metastatic disease. Interval development of a perihepatic peritoneal tumor implant 2. Interval development of low volume ascites 3. Retroperitoneal lymphadenopathy 4. Cholelithiasis 5. No evidence of bowel obstruction. No evidence of free air 6. Progressive pulmonary metastasis 7. Right lower lobe airspace opacities, atelectasis versus pneumonia. ACT 112: Negative or not required by law. Electronically signed by: Giovanny Suarez M.D. 06/10/2020 7:56 PM
[2020-06-10 20:56] LABS: Appearance Urine Cloudy (Clear); Bacteria Urine Automated 1+ (Negative); Bilirubin Urine Negative (Negative); Blood Urine 1+ (Negative); Color Urine Yellow; Epithelial Cell Urine Auto >30 /lpf (0-5); Glucose Urine UA Negative (Negative); Ketones Urine Negative (Negative); Leukocyte Esterase Urine 3+ (Negative); Nitrite Urine Negative (Negative); Specific Gravity Urine > 1.045 (1.000-1.030); Urobilinogen Urine Negative (Negative); WBC Urine Automated >30 /hpf (0-5); pH Urine 8.5 (4.5-7.5)
[2020-06-10 21:12] LABS: Cast Urine Automated 0 /lpf (0-5)
[2020-06-10 21:51] LABS: Protein Urine Negative (Negative); Sulfosalicylic Acid Urine Negative (Negative)
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
[2020-06-10] MEDS: ALBUMIN 25% 50 ML IV SCH (23:44)
[2020-06-11] MEDS ORDERED: MAGNESIUM HYDROXIDE SUSP 30 ML UDC PO PRN (00:36)
[2020-06-11] MEDS ORDERED: ONDANSETRON INJ 2 MG/ML 2 ML VIAL IV PRN (00:36)
[2020-06-11] MEDS ORDERED: ALUMINUM/MAGNESIUM SUSP 30 ML UDC PO PRN (00:36)
[2020-06-11] MEDS ORDERED: ACETAMINOPHEN 325 MG TAB PO PRN (00:36)
[2020-06-11] MEDS: ALBUMIN 25% 50 ML IV SCH ×3 (00:57→12:45)
[2020-06-11] MEDS: LEVOTHYROXINE SODIUM 175 MCG TABLET PO SCH (06:16)
[2020-06-11] MEDS ORDERED: LEVOTHYROXINE SODIUM 125 MCG TABLET PO SCH (06:30)
[2020-06-11 08:04] LABS: INR 2.1 (0.9-1.1); Prothrombin Time 21.4 Seconds (9.0-12.0)
[2020-06-11] MEDS: MULTIVITAMIN TAB PO SCH (08:56)
[2020-06-11] MEDS: ASPIRIN 81 MG ECTAB PO SCH (08:56)
[2020-06-11] MEDS: FOLIC ACID 1 MG TAB PO SCH (08:56)
[2020-06-11] MEDS: THIAMINE HCL 100 MG TAB PO SCH (08:56)
--- NOTE | 2020-06-11 09:47 | Consultation Report ---
DATE OF CONSULTATION: 06/11/2020 REASON FOR CONSULTATION: Progressing metastatic malignant melanoma. HISTORY OF PRESENT ILLNESS: The patient is a very pleasant, but unfortunate 64-year-old female patient well known to [facility], previously managed by Dr. Salinas Hernandez prior to his departure with metastatic malignant melanoma involving the mediastinum as well as the liver and lungs bilaterally. The patient had completed 4 cycles of combination Opdivo and Yervoy in mid 04/2020. She had seen Dr. Chávez shortly after completing combination immunotherapy and was recommending maintenance nivolumab moving forward. Unfortunately, over the past week or so, the patient had developed bilateral leg discomfort due to increased edema and abdominal fullness, clearly suggestive of ascites. I was contacted by the Emergency Room physician alerting me to her most recent radiographic studies indicating her disease has progressed rapidly, estimated by the interpreting radiologist by triple. Tumor size tripled within the past month. The patient's albumin is quite low. The patient insisted on being hospitalized for further management. Clearly from a radiographic and clinical perspective, she is in rapid decline and options for salvage therapy are minimal at this point. I would disagree with Dr. Chávez. I do not believe maintenance nivolumab would provide much benefit at this juncture considering she just recently completed the combination immune therapy. PAST MEDICAL HISTORY: Significant for metastatic malignant melanoma, Clostridium difficile colitis, history of deep vein thromboses, osteoarthritis, hypertension, hypercoagulable state, hypothyroidism, spinal stenosis, venous stasis ulceration. PAST SURGICAL HISTORY: Cataract extraction and history of intestinal surgery status post tubal ligation. MEDICATIONS: Prior to admission include aspirin 81 mg p.o. daily, folic acid 1 mg p.o. daily, levothyroxine 125 mcg p.o. daily, losartan 50 mg p.o. daily, amlodipine 10 mg p.o. daily, multivitamin 1 tablet p.o. daily, potassium chloride 20 mEq p.o. daily, thiamine 100 mg p.o. daily, hydrochlorothiazide 25 mg p.o. daily, warfarin per instruction. ALLERGIES: TO ADHESIVE TAPE. FAMILY HISTORY: Mother suffered from heart disease. Her father at age 69 of myocardial infarction. No family history of neoplasia or hematologic malignancy. SOCIAL HISTORY: The patient is an everyday smoker, multiple pack year history. She is and positive for alcohol. REVIEW OF SYSTEMS: CONSTITUTIONAL: General clinical decline, increased ascites, increased abdominal girth, bilateral lower extremity pitting edema. No fevers, chills or sweats. SKIN: No rashes or lesions. HEENT: Negative for headaches, lightheadedness or dizziness. No acute visual or hearing deficits. No sinus symptoms, sore throat or dysphagia. LYMPH: No history of lymphoproliferative disease. CARDIAC: No current angina or palpitations. PULMONARY: No history of COPD. She is not short of breath, dyspneic or orthopneic. No cough or hemoptysis. GASTROINTESTINAL: Negative for abdominal pain, nausea, vomiting, diarrhea or constipation, hematochezia or melena stools. GENITOURINARY: No hematuria, dysuria, urinary incontinence. PSYCHIATRIC: Negative for anxiety, depression or psychoses. ENDOCRINE: Positive for hypothyroidism. NEUROLOGIC: Negative for seizure, stroke or migraine headache. HEMATOLOGIC: Positive for residual normocytic normochromic anemia. PHYSICAL EXAMINATION: GENERAL: Very pleasant 64-year-old female, awake, alert, appropriate, in no acute distress. VITAL SIGNS: Temperature 37, pulse 83, respiratory rate 18, blood pressure 116/77. SKIN: Warm, dry, noncyanotic without petechia, rash or ecchymosis. HEENT: Atraumatic, normocephalic. Eyes: PERRLA, EOMI. Nares are patent without rhinorrhea or discharge. Throat is clear. Tongue midline. No buccal lesions or ulcerations. NECK: Supple without JVD or thyromegaly. LYMPH: No cervical or supraclavicular lymphadenopathy. HEART: Early systolic murmur 2/6, heard in the left precordium. LUNGS: Bibasilar crackles. ABDOMEN: Distended, shifting dullness, positive fluid wave. No palpable hepatosplenomegaly. Bowel sounds are actually hypoactive. EXTREMITIES: 2+ peripheral edema. Strength and pulses are equal in all 4 quadrants. NEUROLOGICAL: She is awake, alert and oriented x3. Cranial nerves grossly intact. LABORATORY DATA: WBC count 7710, hemoglobin 10.8, platelet count 285,000. Sodium 136, potassium 3.4, chloride 102, carbon dioxide 29, BUN 11, creatinine 0.52, alkaline phosphatase 139, albumin 1.8. TSH 18.7. UA positive for wbc's and rbc's, 1+ blood, leukocyte esterase 3+. RADIOGRAPHIC DATA: CTA of the chest: No evidence of acute pulmonary embolism. Significant interval increased size and number of multiple bilateral pulmonary nodules consistent with metastatic disease. The interpreting radiologist describes tripling in size of the left upper lobe nodule over an 1 month interval, positive for mediastinal lymphadenopathy. CT scan of the abdomen and pelvis done on admission: Significant interval progression of intrahepatic metastatic disease, interval development of a perihepatic peritoneal tumor implant, low volume ascites is noted, retroperitoneal lymphadenopathy. IMPRESSION: 1. Progressive metastatic malignant melanoma. 2. Hypoalbuminemia. 3. Ascites/bilateral lower extremity edema. 4. Hypertension. 5. History of deep vein thrombosis. 6. Hypothyroidism. PLAN: The patient is a pleasant, unfortunate 64-year-old female patient, admitted to [facility] last night with general clinical decline, increased abdominal girth, ascites and lower extremity edema. The patient had recently completed combination ipilimumab and nivolumab in mid April. She also consults with Dr. Chávez at the [facility] and he had recommended maintenance nivolumab moving forward. Based on this rapid progression and the fact she has been exposed to this particular agent, I see no utility on pursuing maintenance therapy at this point. We will review her treatment grid otherwise to see if there are any viable options, but unfortunately I believe such options are few. Agree with medical management, specifically increasing thyroid hormone and providing albumin moving forward. From an oncologic perspective, we will plan on reconvening with the patient and her to discuss therapeutic plans moving forward. I advised the patient it might be [place] to consider palliation at this point and focus on life quality for the time that she has remaining. Based on her rate of progression, I would gauge her survival 1-2 months max. We will continue to follow her periodically during hospital stay. Thank you very much for allowing me to participate in her care.
--- NOTE | 2020-06-11 13:07 | Hospitalist Progress Note ---
Date of Service June 11, 2020 Assessment & Plan (1) Malignant melanoma: Consult hematology/oncology, Dr. Morton. Palliative care consult also requested (2) Bilateral edema of lower extremity: Lymphangitic spread of melanoma probably contributing. Chronic venous stasis changes bilateral lower legs also contributing. Hypoalbuminemia also contributing. Amlodipine associated edema is also a consideration Continuing treatment for metastatic melanoma. ovement. (3) Abdominal ascites: Malignant from metastatic melanoma. Low volume ascites seen on CT scan. She does not appear to be a candidate for paracentesis at this time. (4) HTN (hypertension): Hold HCTZ, amlodipine and losartan due to low blood pressure (5) H/O deep venous thrombosis: Continue warfarin, follow serial PT/INR (6) Hypothyroid: Has been on levothyroxine 125 mcg daily, with 2 days of 175. TSH continues elevated at 18.700. Since TSH is above 10, will increase levothyroxine to 175 mcg daily. TSH to be rechecked again in 4 weeks Admission and Anticipated Discharge Date Admission Date: June 10, 2020 Subjective The patient is alert and pleasant. Case discussed with Dr. Eason. There are no viable chemotherapeutic treatment options at this time. Abdominal CT scan report was reviewed. Ascitic fluid volume appears to be low and paracentesis will not be pursued at this time. She agrees to palliative care consultation. INR will be monitored daily. She is receiving IV albumin which will also be monitored daily. Antihypertensive medications remain on hold. Thyroid dosage has been increased. Review of Systems Review of Systems: Constitutional-no fever or chills ENT-no blurred vision, no double vision, no epistaxis, no sore throat Respiratory-no cough, no wheezing, no shortness of breath Cardiac-no palpitations, no chest pain, no syncope GI-poor appetite. Intermittent nausea. Increasing abdominal girth -no urinary retention, no urinary incontinence, no dysuria, no hematuria Musculoskeletal-no joint pain, no muscle tenderness Skin-no bruising, no rashes, no pruritus Neuro-generalized weakness Psych-no anxiety Physical Exam Physical Exam: General-alert and oriented x3, no fevers, no chills HEENT-head atraumatic and normocephalic, TMs intact bilaterally, pupils equal and reactive to light, extraocular muscles intact Neck-no lymphadenopathy or thyromegaly, trachea midline Chest-clear to auscultation percussion. No rales wheezing or rhonchi Cardiac-regular rate and rhythm, normal S1 and S2, no murmurs Abdomen-abdomen is distended but tympanitic. No fluid wave. Bowel sounds are active Extremities-bilateral lower extremity chronic venous stasis changes with weeping chronic wound right lower extremity below the knee medially. 2+ pitting edema noted bilateral lower extremities Neuro-cranial nerves II through XII intact, generalized weakness, no focal deficits Psych-flat affect Results & Data Results & Data ([facility]) Vital Signs (Past 12 Hours) Vital Signs Temp Pulse Pulse Resp BP Pulse Ox 06/11/20 12:45 36.9 C 87 16 111/73 92 06/11/20 11:07 36.9 C 79 18 111/71 90 06/11/20 07:55 36.0 C L 84 18 116/76 92 06/11/20 07:40 37.0 C 83 18 116/77 94 06/11/20 07:25 36.7 C 82 82 18 111/72 91 06/11/20 07:22 36.9 C 87 18 107/71 90 Laboratory Results 06/10/20 17:22 06/10/20 17:22 PG Care Time/CCT Total # of Minutes Spent Total Time Spent with Patient: Total time spent is greater than 50% in coordina tion of care (as documented) at patient's floor/unit and/or counseling patient: Coding Level of Care Code 29789 Subseq Hosp Care Lvl 3 Diagnoses Malignant melanoma C43.9 Bilateral edema of lower extremity R60.0 Abdominal ascites R18.8 HTN (hypertension) I10 H/O deep venous thrombosis Z86.718 Hypothyroid E03.9
[2020-06-11] MEDS: WARFARIN SOD 5 MG TAB PO SCH (15:50)
--- NOTE | 2020-06-11 17:28 | Electrocardiogram Report ---
Test Reason : Blood Pressure : / mmHG Vent. Rate : 098 BPM Atrial Rate : 098 BPM P-R Int : 210 ms QRS Dur : 098 ms QT Int : 358 ms P-R-T Axes : 025 -37 030 degrees QTc Int : 457 ms Sinus rhythm with 1st degree A-V block Left axis deviation Possible Anterolateral infarct , age undetermined Abnormal ECG When compared with ECG of 01-MAY-2020 15:49, Nonspecific T wave abnormality now evident in Lateral leads Confirmed by Carloz Camarillo ([id number]) on 06/11/2020 5:27:42 PM Referred By: REFERRED SELF Confirmed By:Jose Alfredo Camarillo
[2020-06-12] MEDS: LEVOTHYROXINE SODIUM 175 MCG TABLET PO SCH (06:10)
[2020-06-12 06:38] LABS: INR 2.2 (0.9-1.1); Prothrombin Time 22.5 Seconds (9.0-12.0)
[2020-06-12 06:57] LABS: Albumin Level 1.9 gm/dl (3.4-5.0); BUN Creatinine Ratio 21.8 (10-20); Creatinine Clr Calc Pharmacy 137.3 ml/min; Est GFR (African American) 120.1; Est GFR (Non-African American) 103.7; Potassium 3.2 mmol/L (3.5-5.1)
[2020-06-12] MEDS: ASPIRIN 81 MG ECTAB PO SCH (08:14)
[2020-06-12] MEDS: MULTIVITAMIN TAB PO SCH (08:14)
[2020-06-12] MEDS: FOLIC ACID 1 MG TAB PO SCH (08:14)
[2020-06-12] MEDS: THIAMINE HCL 100 MG TAB PO SCH (08:14)
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
[2020-06-12] MEDS ORDERED: POTASSIUM PHOS 3 MMOL/1 ML INFUSION IV STA (15:35)
[2020-06-12] MEDS ORDERED: POTASSIUM PHOSPHATE 15 MMOL in SODIUM CHLORIDE 0.9% 250 ML IV STA (15:36)
[2020-06-12] MEDS: WARFARIN SOD 5 MG TAB PO SCH (15:42)
--- NOTE | 2020-06-12 19:21 | Hospitalist Progress Note ---
Date of Service June 12, 2020 Assessment & Plan (1) Malignant melanoma: Consult hematology/oncology, Dr. Morton. Palliative care c/s Notes that pt appears ready to move toward hospice, however is still interested in pursuing care Pt apparently told [employer] that she would like to be DNR, however convinced her to continue as full code Will continue to discuss (2) Bilateral edema of lower extremity: Lymphangitic spread of melanoma probably contributing. Chronic venous stasis changes bilateral lower legs also contributing. Hypoalbuminemia also contributing. Amlodipine associated edema is also a consideration Continuing treatment for metastatic melanoma. ovement. (3) Abdominal ascites: Malignant from metastatic melanoma. Low volume ascites seen on CT scan. She does not appear to be a candidate for paracentesis at this time. (4) HTN (hypertension): Hold HCTZ, amlodipine and losartan due to low blood pressure (5) H/O deep venous thrombosis: Continue warfarin, follow serial PT/INR (6) Hypothyroid: Has been on levothyroxine 125 mcg daily, with 2 days of 175. TSH continues elevated at 18.700. Since TSH is above 10, will increase levothyroxine to 175 mcg daily. TSH to be rechecked again in 4 weeks (7) Hypokalemia: Takes PO 20mg QD as outpt and dose not miss doses Replace via IV and monitor May need t/c higher PO dosing Admission and Anticipated Discharge Date Admission Date: June 10, 2020 Subjective Pt states her LE swelling and pain are stable. No improvements. Ongoing abd swelling. No pain, just swollen. Tolerating PO without issue. Pt denies fever, SOB, chest pain, n/v/c/d. Review of Systems Review of Systems: Pertinent positives and negatives reviewed in HPI--all others negative Physical Exam Constitutional: WD/WN, vitals as above Eyes: normal visual mosher by confrontation and + anicteric sclerae Neck: normal visual inspection and trachea midline Respiratory: normal respiratory effort, lungs clear to auscultation Cardiovascular: Rate/Rhythm: regular rate and regular rhythm Extremities: + edema Gastrointestinal (Abdomen): Inspection/Auscultation: + abdomen distended Percussion/Palpation: abdomen soft; abdomen nontender Musculoskeletal: Head/Neck/Chest: normocephalic and head atraumatic peripheral pulses intact Skin: no rashes, warm and dry Neurologic: awake; not confused Speech / Cognition: normal speech Psychiatric: A+Ox3, euthymic affect Results & Data Results & Data ([facility]) Vital Signs (Past 12 Hours) Vital Signs Temp Pulse Resp BP Pulse Ox 06/12/20 15:00 36.7 C 85 18 130/76 94 PG Care Time/CCT Total # of Minutes Spent Total Time Spent with Patient: Total time spent is greater than 50% in coordination of care (as documented) at patient's floor/unit and/or counseling patient: Coding Level of Care Code 87673 Subseq Hosp Care Lvl 3 Diagnoses Malignant melanoma C43.9 Bilateral edema of lower extremity R60.0 Abdominal ascites R18.8 HTN (hypertension) I10 H/O deep venous thrombosis Z86.718 Hypothyroid E03.9 Hypokalemia E87.6
[2020-06-13] MEDS: LEVOTHYROXINE SODIUM 175 MCG TABLET PO SCH (06:13)
[2020-06-13] MEDS: FOLIC ACID 1 MG TAB PO SCH (08:31)
[2020-06-13] MEDS: MULTIVITAMIN TAB PO SCH (08:31)
[2020-06-13] MEDS: ASPIRIN 81 MG ECTAB PO SCH (08:31)
[2020-06-13] MEDS: THIAMINE HCL 100 MG TAB PO SCH (08:31)
[2020-06-13 09:09] LABS: Prothrombin Time 20.3 Seconds (9.0-12.0)
[2020-06-13 09:22] LABS: BUN Creatinine Ratio 22.9 (10-20); Calcium 8.1 mg/dl (8.5-10.1); Creatinine Clr Calc Pharmacy 125.6 ml/min; Est GFR (African American) 116.3; Est GFR (Non-African American) 100.3; Potassium 3.6 mmol/L (3.5-5.1)
--- NOTE | 2020-06-13 10:09 | Discharge Summary ---
Date of Service June 13, 2020 Admission HPI Per Admitting Provider The patient is a 64-year-old female with a past medical history including metastatic melanoma, UTI, hypothyroidism, hypertension, history of DVT, history of C. difficile colitis, abdominal ascites and tachycardia. She presents emergency department with concern regarding leg discomfort due to increased swelling associated with chemotherapy from metastatic melanoma. She is also concerned regarding some worsening abdominal distention. Principal Diagnosis Pt states she feels about the same as on admission. Ongoing LE swelling that is stable. No further LE pain. Ongoing abd swelling that is stable, also not painful. She is eating without issue. She would like to go home. is not present at this time. She states he did receive the imaging disc requested ye . Pt denies fever, SOB, chest pain, n/v/c/d. Discharge Exam Constitutional WD/WN, vitals as above Eyes normal visual mosher by confrontation and + anicteric sclerae Neck normal visual inspection and trachea midline Respiratory normal respiratory effort, lungs clear to auscultation Cardiovascular Rate/Rhythm: regular rate and regular rhythm Extremities: + edema (b/l LE) Gastrointestinal (Abdomen) Inspection/Auscultation: + abdomen distended Percussion/Palpation: abdomen soft; abdomen nontender Musculoskeletal Head/Neck/Chest: normocephalic and head atraumatic Skin no rashes, warm and dry Neurologic awake; not confused Speech / Cognition: normal speech Psychiatric A+Ox3, euthymic affect Discharge Data Allergies Allergy/AdvReac Type Severity Reaction Status Date / Time adhesive tape Allergy Intermediate REDDENED, Verified 06/10/20 16:37 IRRITATED SKIN Consultations 06/10/20 20:39 ED Decision to Admit Stat 06/11/20 00:36 Consult Hematology Routine 06/11/20 10:29 Consult Palliative Care Routine Ordered Studies 06/10/20 15:36 CT abd pelvis IV con only Stat 06/10/20 16:57 CT angio chest PE protocol Stat Hospital Course (1) Malignant melanoma: Consult hematology/oncology, Dr. Morton. Palliative care c/s Notes that pt appears ready to move toward hospice, however is still interested in pursuing more aggressive care Pt apparently told palliative PROVIDER NETWORK ANALYST that she would like to be DNR, however convinced her to continue as full code See palliative note for details Advised pt on d/c that she could f/u with palliative care as an outpt if she and change their minds on her current tx plan asked for disc of imaging done during admission. confirms that he did receive this yesterday. (2) Bilateral edema of lower extremity: Lymphangitic spread of melanoma probably contributing. Chronic venous stasis changes bilateral lower legs also contributing. Hypoalbuminemia also contributing. Amlodipine associated edema is also a consideration Continuing treatment for metastatic melanoma. (3) Abdominal ascites: Malignant from metastatic melanoma. Low volume ascites seen on CT scan. She does not appear to need paracentesis at this time. (4) HTN (hypertension): Monitor BP on current meds Has been low at times (5) H/O deep venous thrombosis: Continue warfarin, follow serial PT/INR INR WNL during admission (6) Hypothyroid: Recheck TSH in 4 weeks (7) Hypokalemia: Takes PO 20mg QD as outpt and dose not miss doses Replaced via IV during admission and noted at 3.6 on d/c Increase home dosing to BID Recheck PRP in 2 weeks Total Time Total Time Spent Total Time Spent (In Minutes): >30 Total Time Includes: Examination of the Patient, Discharge Planning, Medication Reconciliation and Other Discharge Plan Discharge Items Patient Disposition: Home - Self-Care Reason For Visit: LEG PAIN, ABDOMINAL BLOATING Discharge Diagnosis: Abdominal ascites, lower extremity swelling Condition on Discharge: Fair Activity: Resume your previous activity Non-emergency contact: Primary Care Provider and Oncologist Call non-emergency contact if: you have any medication questions and your symptoms worsen Follow-up/Referrals: Homero Morton DO [Physician] - (as scheduled prior) Cally Koenig MD [Physician] - (Can follow up if needed) Rudy Cohn MD [Primary Care Provider] - Diet: Regular Addtl Attending Provider Instructions: You should start taking your potassium twice a day. You were seen by palliative care during your stay. If you decide that you would like to discuss further options with them, you can be seen in their offices. Their number is [phone]. Pending Studies at Discharge: No Stand-Alone Forms: [employer], Smoking Cessation Medications and DC Order Prescriptions: Continued hydrochlorothiazide 25 mg tablet 25 mg PO DAILY RF: 0 aspirin [Adult Aspirin Regimen] 81 mg tablet,delayed release (DR/EC) 81 mg PO DAILY RF: 0 losartan 50 mg tablet 50 mg PO DAILY RF: 0 levothyroxine 125 mcg capsule See Rx Instructions .ROUTE .COMPLEX RF: 0 folic acid 1 mg tablet 1 mg PO DAILY RF: 0 warfarin 5 mg Tablet See Rx Instructions .ROUTE .COMPLEX RF: 0 amlodipine [Norvasc] 10 mg tablet 10 mg PO DAILY RF: 0 multivitamin Tablet 1 tab PO DAILY RF: 0 thiamine HCl (vitamin B1) [Vitamin B-1] 100 mg Tablet 100 mg PO DAILY RF: 0 Changed potassium chloride 20 mEq tablet,ER particles/crystals 20 meq PO BID Qty: 60 RF: 0 Discharge Orders: Discharge Order (Routine); Ordered 06/13/20 Ordered By: Mira Richards Admission Data Admit Date/Time: 06/10/20 23:21 Attending Provider: Mira Richards Admit Provider: Dillon Fox Primary Care Provider: Rudy Cohn Other Providers: Dillon Fox ; Homero Morton V. ; Cally Koenig Other Interventions: Discharge Summary Assessment (RN) Last Done: 06/13/20 10:08 DC Date/Time DO NOT enter until pt leaves facility: 06/13/20 11:41 Coding Level of Care Code D/C Day Management >30 mins Diagnoses Malignant melanoma C43.9 Bilateral edema of lower extremity R60.0 Abdominal ascites R18.8 HTN (hypertension) I10 H/O deep venous thrombosis Z86.718 Hypothyroid E03.9 Hypokalemia E87.6
[2020-06-17] MEDS ORDERED: WARFARIN SOD 7.5 MG TAB PO SCH (16:00)
== END 2020-06-13 11:41 | disposition home or self-care (01) | DRG 596 ==
LOC: ED 15:13 → 2W 23:21 → INTOOBSV 23:21 → SUATTDRO 23:21 → 2W 06-11 00:23